=== PATIENT | female | born 1930 | race Caucasian/White ===

== ENCOUNTER 2018-09-10 12:14 | Inpatient (IN) | payer MEDICARE, OTHER ==
[~2018-09-10] VITALS: Ht 165.1 cm; Wt 63.6 kg
[2018-09-10] VITALS (9 sets, daily range): BP systolic 122–164; BP diastolic 48–82; PULSE 67–84; RESP 13–19; Ht 165.1 cm; Wt 63.6 kg
--- NOTE | 2018-09-10 12:25 | ERD ---
ER Documentation Chief Complaint Chief Complaint "More altered than usual" HPI 87-year-old female history of hypertension, dementia, CKD, coronary artery disease, chronic diastolic heart failure, anemia, malignant neoplasm of left o vary, GERD and dysphasia, G-tube dependent presents to the ED via rescue ambulance from [facility] for evaluation of altered mental status. This morning at approximately 9 AM during rounds patient was found not responding as per her baseline. Patient usually is awake and answers to her name. Patient was last seen at her baseline yesterday evening at bedtime approximately 11 PM. As per SNF staff, over the last several days patient has had increasing agitation that did not respond to her usual Ativan and was started on BuSpar. History is extremely limited due to the patient's clinical condition and cognitive impairment and obtained entirely from review of intermediate facility records, EMS and subsequent conversation with staff at the intermediate facility. ROS Unobtainable except as per HPI due to the patient's clinical condition and c ognitive impairment. Medications Home Meds Reported Medications Polyethylene Glycol* (Polyethylene Glycol*) 17 Gm Powd.pack, 17 GM GTB BID, #60 PACKET MIX WITH 8oz OF WATER HOLD FOR LOOSE STOOL 09/10/18 Ferrous Sulfate (Ferrous Sulfate) 220 Mg/5 Ml Solution, 330 MG GTB BID 09/10/18 Losartan Potassium* (Losartan Potassium*) 50 Mg Tablet, 50 MG GTB DAILY, TAB HOLD IF SBP <110 09/10/18 Multivitamin* (Daily Value*) 1 Each Tablet, 1 TAB GTB DAILY, TAB 09/10/18 Clopidogrel Bisulfate (Clopidogrel) 75 Mg Tablet, 75 MG GTB DAILY, #30 TAB 09/10/18 Amino Acids/Protein Hydrolys (Pro-Stat Awc Liquid) 30 Ml Liquid, 30 ML GTB BID MIX WITH 30 MLS OF WATER 09/10/18 Aspirin (Low Dose Aspirin) 81 Mg Tablet.dr, 81 MG GTB DAILY, #30 TAB 09/10/18 Amlodipine Besylate* (Norvasc*) 5 Mg Tablet, 5 MG GTB DAILY, TAB HOLD FOR SBP <110 09/10/18 Allergies Allergies: Coded Allergies: No Known Allergy (Unverified , 09/10/18) PMhx/Soc Reviewed in chart. As per HPI. SNF resident. POLST-full code. History of Surgery: Yes (Port-A-Cath, G-tube) Hx Neurological Disorder: Yes (Dementia) Hx Respiratory Disorders: No Hx Cardiac Disorders: Yes (Coronary artery disease, hypertension, CHF) Hx Miscellaneous Medical Probl: Yes (Diabetes, hyperlipidemia, malignant neoplasm of left ovary) Hx Alcohol Use: No (No history of alcohol use documented) Hx Substance Use: No (No history of substance abuse documented) Smoking Status: Unknown if ever smoked FmHx Unknown. Unobtainable due to the patient's clinical condition and cognitive impairment Physical Exam Vitals Vital Signs Date Temp Pulse Resp B/P (MAP) Pulse Ox O2 O2 Flow FiO2 Time Delivery Rate 09/10/18 99.4 65 18 140/61 100 Nasal 13:00 (87) Cannula 09/10/18 99.4 12:53 09/10/18 98.8 89 18 137/59 99 12:21 (85) Physical Exam Const: Severe distress, uncooperative Head: Atraumatic Eyes: Pupils equal reactive to light. No gaze preference. Normal Conjunc tiva ENT: Normal External Ears, Nose and Mouth. Ecchymosis and swelling left mandible. No deformity. Positive gag reflex Neck: Supple. Carotids 2+ bilaterally without bruits. No me ningismus. No JVD. Resp: Breath sounds equal and clear to auscultation bilaterally. No rales rhonchi or wheezes. Cardio: Regular rate and rhythm, no murmurs Abd: Soft, non tender, non distended. No rebound or guarding. Normal bowel sounds. G-tube site without erythema, induration or drainage. Skin: No petechiae or rashes. Ecchymosis and bruising to the lower extremities. Back: No midline or flank tenderness Ext: No cyanosis, or edema Neur: Localizes pain. Uncooperative. No facial droop. DTRs symmetrical. Moves all extremities spontaneously. Physical examination is truncated due to the constraints imposed by the patient's clinical condition Result Diagram: 09/11/1844909/11/18449 Results 24 hrs Laboratory Tests Test 09/10/18 12:37 09/10/18 13:37 White Blood Count 16.6 10^3/ul Red Blood Count 2.57 10^6/ul Hemoglobin 7.6 g/dl Hematocrit 23.8 % Mean Corpuscular Volume 92.6 fl Mean Corpuscular Hemoglobin 29.6 pg Mean Corpuscular Hemoglobin Concent 31.9 g/dl Red Cell Distribution Width 18.0 % Platelet Count 255 10^3/UL Mean Platelet Volume 10.4 fl Immature Granulocytes % 0.700 % Neutrophils % 80.2 % Lymphocytes % 11.3 % Monocytes % 7.2 % Eosinophils % 0.4 % Basophils % 0.2 % Nucleated Red Blood Cells % 0.0 /100WBC Immature Granulocytes # 0.110 10^3/ul Neutrophils # 13.3 10^3/ul Lymphocytes # 1.9 10^3/ul Monocytes # 1.2 10^3/ul Eosinophils # 0.1 10^3/ul Basophils # 0.0 10^3/ul Nucleated Red Blood Cells # 0.0 10^3/ul Urine Color YELLOW Urine Clarity CLOUDY Urine pH 8.0 Urine Specific [place] 1.015 Urine Ketones NEGATIVE mg/dL Urine Nitrite NEGATIVE mg/dL Urine Bilirubin NEGATIVE mg/dL Urine Urobilinogen NEGATIVE mg/dL Urine Leukocyte Esterase 3+ Darius/ul Urine Microscopic RBC 41 /HPF Urine Microscopic WBC 148 /HPF Urine Squamous Epithelial Cells FEW /HPF Urine Bacteria FEW /HPF Urine Mucus FEW /HPF Urine Yeast (Budding) MANY /HPF Urine Hemoglobin NEGATIVE mg/dL Urine Glucose NEGATIVE mg/dL Urine Total Protein 2+ mg/dl Sodium Level 136 mmol/L Potassium Level 6.6 mmol/L Chloride Level 102 mmol/L Carbon Dioxide Level 23 mmol/L Anion Gap 11 Blood Urea Nitrogen 91 mg/dl Creatinine 4.03 mg/dl Est Glomerular Filtrat Rate mL/min mL/min Glucose Level 114 mg/dl Calcium Level 8.6 mg/dl Total Bilirubin 0.3 mg/dl Direct Bilirubin 0.00 mg/dl Indirect Bilirubin 0.3 mg/dl Aspartate Amino Transf (AST/SGOT) 35 IU/L Alanine Aminotransferase (ALT/SGPT) 17 IU/L Alkaline Phosphatase 63 IU/L Troponin I 0.101 ng/ml Total Protein 7.3 g/dl Albumin 3.3 g/dl Globulin 4.00 g/dl Albumin/Globulin Ratio 0.82 Bedside Glucose 124 mg/dL Current Medications Medications Dose Sig/Toney Start Time Status Last (Trade) Ordered Route PRN Stop Time Admin Dose Reason Admin Ceftriaxone 50 ml @ ONCE STAT 09/10/18 DC 09/10/18 Sodium 100 mls/hr IVPB 13:19 09/10/18 13:38 13:48 Albuterol 15 mg ONCE STAT 09/10/18 DC 09/10/18 (Proventil INH 13:23 09/10/18 13:57 0.5% (Neb)) 13:25 Sodium 50 ml ONCE STAT 09/10/18 DC 09/10/18 Bicarbonate IV 13:09/10/18 13:40 (Na Bicarb 13:25 8.4% Syg) Calcium 1,000 mg ONCE STAT 09/10/18 DC 09/10/18 Chloride IV 13:23 09/10/18 13:40 (Ca Chloride 13:25 10% Syg) Insulin 10 unit ONCE STAT 09/10/18 DC 09/10/18 Human IVP 13:23 09/10/18 13:41 Regular 13:25 (Humulin R) Dextrose ONCE PRN 09/10/18 09/10/18 (D50w IV DECREASED 13:30 13:42 Syringe) GLUCOSE Procedures/MDM DOCUMENTS REVIEWED: ED nurse, intermediate facility records. EKG: Time: :19. Sinus rhythm. Ventricular rate 70. Normal MI interval. QRS duration 118 ms. Incomplete left bundle branch block. Nonspecific ST-T wave changes. No ectopy. My Interpretation IMAGING: Chest AP portable: Cardiac silhouette is normal. The costophrenic angles are clear. No effusions or infiltrates. Port-A-Cath with tip in the superior vena cava. My interpretation PROCEDURE: Noncontrast CT Head. CLINICAL INDICATION: Trauma. TECHNIQUE: Noncontrast CT of the head was obtained. The administered radiation dose was CTDI vol = 38.01 mGy, DLP = 634.23 mGy-cm. One or more of the following dose reduction techniques were used: Automated exposure control, Adjustment of the mA and/or kV according to patient size, or Use of iterative reconstruction technique. DICOM images are available. COMPARISON: There are no similar studies submitted for comparison. FINDINGS: There is mild to moderate generalized cerebral volume loss. There is extensive periventricular hypoattenuation suggesting chronic microvascular ischemic changes. There are moderate to extensive vascular calcifications within the intracranial carotid arteries. There is an acute / recent left temporal parietal occipital infarction. There are also acute / recent right parietal occipital infarction. No midline shift is identified. The orbits are within normal limits. There is minimal bilateral ethmoid sinus mucosal thickening. No destructive osseous lesion is identified. IMPRESSION: 1. Acute / recent left temporal occipital and right parietal occipital infarctions. Consider CTA of the head/neck or noncontrast MRI of the brain as clinically warranted. 2. No acute intracranial hemorrhage or extra-axial fluid collection. 3. Mild to moderate generalized cerebral volume loss. 4. Advanced chronic microvascular ischemic changes. Further findings as detailed above. Critical findings were discussed with Gin Daily on 09/10/2018 at 1:20 PM. RPTAT: HVF .Dionicio Farrell MD, MD Date Time Electronically viewed and signed by .Dionicio Farrell MD, MD on 09/10/2018 13:22 .F/ CRITICAL CARE TIME: Due to the high probability of sudden clinically significant hemodynamic, cardiovascular and neurologic deterioration, this patient presenting with acute CVA, acute renal failure and hyperkalemia required multiple, frequent reevaluations of vital signs and response to therapy. Additional critical care time was spent in obtaining supplemental history from EMS, review of intermediate facility records, interpretation of relevant clinical data including labs and imaging studies as well as arranging for admission and ongoing care to the intensive care unit with Dr. Montesinos. TOTAL CRITICAL CARE TIME: 40 minutes not including other separately reportable procedures. MEDICAL DECISION MAKIN-year-old female history of hypertension, dementia, CKD, coronary artery disease, chronic diastolic heart failure, anemia, malignant neoplasm of left ovary, GERD and dysphasia, G-tube dependent presents to the ED via rescue ambulance from [facility] for evaluation of altered mental status. CBC reveals leukocytosis and anemia but no thrombocytopenia. Chemistry remarkable for markedly elevated BUN/creatinine consistent with acute renal failure and critical hyperkalemia but no acidosis or hypo/hyperglycemia. Chest x-ray unremarkable for pneumonia, CHF or volume overload. Urinalysis reveals pyuria consistent with urinary tract infection and antibiotics initiated after cultures. EKG negative for acute ischemic changes or dysrhythmia. Troponin is not elevated above the reference range. CT of the brain significant for acute/subacute left temporal occipital and parieto- occipital infarcts but no hemorrhage, mass, hydrocephalus or shift. Hyperkalemia treated aggressively with D50/insulin, nebulized beta agonist, calcium and bicarb. Patient presents with acute encephalopathy and CT findings of CVA which are acute but greater than 24 hours. Patient not a candidate for thrombolytics or endovascular therapy. Aspirin suppository administered. Urinary tract infection but no criteria for systemic inflammatory response syndrome. Admit to ICU for further evaluation and management. PATIENT CARE TRANSITIONED: Time: 13:41, Dr. Montesinos. Counseled [patient and family] regarding diagnosis, diagnostic results and plan for admission. Departure Diagnosis: Primary Impression: CVA (cerebral vascular accident) CVA mechanism: unspecified Qualified Codes: I63.9 - Cerebral infarction, unspecified Additional Impressions: Acute encephalopathy Acute renal failure Acute renal failure type: unspecified Qualified Codes: N17.9 - Acute kidney failure, unspecified Acute hyperkalemia UTI (urinary tract infection) Urinary tract infection type: site unspecified Hematuria presence: without hematuria Qualified Codes: N39.0 - Urinary tract infection, site not specif ied History of ovarian cancer Condition: Critical GIN RODRIGUEZ MD Sep 10, 2018 12:25
[2018-09-10] MEDS ORDERED: AMLO5TAB4 GTB (12:49)
[2018-09-10] MEDS ORDERED: ASPI81TA52 GTB (12:49)
[2018-09-10] MEDS ORDERED: AMIN30LI5 GTB (12:51)
[2018-09-10] MEDS ORDERED: MULT-542 GTB (12:52)
[2018-09-10] MEDS ORDERED: CLOP75TA27 GTB (12:52)
[2018-09-10] MEDS ORDERED: LOSA50TA14 GTB (12:53)
[2018-09-10] MEDS ORDERED: FERR220S19 GTB (12:54)
[2018-09-10] MEDS ORDERED: POLY17PO28 GTB (12:56)
[2018-09-10] MEDS ORDERED: CEFTRIAXONE 1 GM/50 ML (PMX) 50 ML IVPB STA (13:19)
[2018-09-10] MEDS ORDERED: INSULIN REGULAR, HUMAN 100 UNIT/1 ML 3ML VIAL IVP STA (13:23)
[2018-09-10] MEDS ORDERED: ALBUTEROL 0.5% (NEB) 2.5 MG/0.5 ML AMP INH STA (13:23)
[2018-09-10] MEDS ORDERED: CA CHLORIDE 10% 10 ML SYRINGE IV STA (13:23)
[2018-09-10] MEDS ORDERED: NA BICARBONATE 8.4% 50 ML SYG IV STA (13:23)
[2018-09-10] MEDS ORDERED: DEXTROSE 50% 50 ML SYRINGE IV PRN (13:30)
[2018-09-10] MEDS ORDERED: ASPIRIN 300 MG SUPP PR ONE (14:00)
--- NOTE | 2018-09-10 14:31 | HP ---
Date/Time of Note Date/Time of Note DATE: 09/10/18 TIME: 14:25 Assessment/Plan VTE Prophylaxis SCD applied (from Nsg): Yes Pharmacological prophylaxis: NA/contraindicated Pharm contraindication: renal impairment Lines/Catheters IV Catheter Type (from Nrsg): portacath Assessment/Plan Hospital Course 1. Acute on chronic encephalopathy secondary to acute CVA CT head once again shows acute/recent left temporal occipital and right parietal occipital infarctions Patient is outside the window for TPA Neurology consultation Stroke protocol with neurochecks Aspirin per rectum 2. Sepsis secondary to UTI Rocephin empirically Follow-up on cultures 3. Acute kidney injury on CKD likely secondary to sepsis hemodynamics Baseline creatinine unknown IV fluids Antibiotics Nephrology consultation Renal ultrasound 4. History of ovarian cancer Unclear if patient is receiving chemotherapy 5. Dementia Patient resides in a fci and receives G-tube feeds 6. Hyperkalemia secondary to renal failure Treated in ER 7. Normocytic anemia likely secondary to chronic disease and renal failure Monitor Prophylaxis: SCDs Result Diagram: 09/10/18 1237 09/10/18 1237 Results 24hrs Laboratory Tests Test 09/10/18 12:37 09/10/18 13:37 White Blood Count 16.6 H Red Blood Count 2.57 L Hemoglobin 7.6 L Hematocrit 23.8 L Mean Corpuscular Volume 92.6 Mean Corpuscular Hemoglobin 29.6 Mean Corpuscular Hemoglobin Concent 31.9 L Red Cell Distribution Width 18.0 H Platelet Count 255 Mean Platelet Volume 10.4 Immature Granulocytes % 0.700 H Neutrophils % 80.2 H Lymphocytes % 11.3 L Monocytes % 7.2 Eosinophils % 0.4 Basophils % 0.2 Nucleated Red Blood Cells % 0.0 Immature Granulocytes # 0.110 H Neutrophils # 13.3 H Lymphocytes # 1.9 Monocytes # 1.2 H Eosinophils # 0.1 Basophils # 0.0 Nucleated Red Blood Cells # 0.0 Urine Color YELLOW Urine Clarity CLOUDY A Urine pH 8.0 Urine Specific [place] 1.015 Urine Ketones NEGATIVE Urine Nitrite NEGATIVE Urine Bilirubin NEGATIVE Urine Urobilinogen NEGATIVE Urine Leukocyte Esterase 3+ H Urine Microscopic RBC 41 H Urine Microscopic WBC 148 H Urine Squamous Epithelial Cells FEW Urine Bacteria FEW A Urine Mucus FEW A Urine Yeast (Budding) MANY A Urine Hemoglobin NEGATIVE Urine Glucose NEGATIVE Urine Total Protein 2+ H Sodium Level 136 Potassium Level 6.6 *H Chloride Level 102 Carbon Dioxide Level 23 Anion Gap 11 Blood Urea Nitrogen 91 H Creatinine 4.03 H Est Glomerular Filtrat Rate mL/min Glucose Level 114 Calcium Level 8.6 Total Bilirubin 0.3 Direct Bilirubin 0.00 Indirect Bilirubin 0.3 Aspartate Amino Transf (AST/SGOT) 35 Alanine Aminotransferase (ALT/SGPT) 17 Alkaline Phosphatase 63 Troponin I 0.101 Total Protein 7.3 Albumin 3.3 Globulin 4.00 H Albumin/Globulin Ratio 0.82 Bedside Glucose 124 HPI/ROS Admit Date/Time Admit Date/Time September 10, 2018 Hx of Present Illness Patient is an 87-year-old female with history of hypertension, dementia, CKD, coronary disease, diastolic heart failure, anemia, malignant neoplasm of left ovary, GERD and dysphasia with G-tube. Patient resides at [facility], patient presents with acute on chronic encephalopathy. Patient was brought in by paramedics after being noted to be altered this morning and was not responding as per her baseline. Patient is usually awake and answers to her name but over the last several days patient has had increasing agitation and was started on BuSpar. Patient was last seen in her baseline before 11 PM last night. History is obtained from ER physician and paramedics as patient is nonverbal at this time. 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 UA was also consistent with UTI. ROS Subjective hx not possible: pt non-verbal PMH/Family/Social Past Medical History As per HPI Medications Current Medications Dextrose (D50w Syringe) ONCE PRN IV DECREASED GLUCOSE Last administered on 09/10/18at 13:42; Admin Dose 25 ML; Start 09/10/18 at 13:30 Coded Allergies: No Known Allergy (Unverified , 09/10/18) Family History Significant Family History: no pertinent family hx Social History Alcohol Use: none Smoking Status: Unknown if ever smoked Drug Use: none Exam/Review of Systems Vital Signs Vitals Vital Signs Date Temp Pulse Resp B/P (MAP) Pulse Ox O2 O2 Flow FiO2 Time Delivery Rate 09/10/18 66 22 99 21 14:00 09/10/18 99.4 140/61 Nasal 13:00 (87) Cannula Exam Constitutional: non-verbal Respiratory: clear to auscultation Cardiovascular: regular rate and rhythm Gastrointestinal: soft; No distended Musculoskeletal: nl extremities to inspection REGAN SANCHEZ Sep 10, 2018 14:31
[2018-09-10] MEDS ORDERED: ONDANSETRON 4 MG INJ IV PRN (15:00)
[2018-09-10] MEDS ORDERED: morphine 2 MG INJ IV PRN (15:00)
[2018-09-10] MEDS ORDERED: NACL 0.9% 3 ML SYG IV SCH (15:00)
[2018-09-10] MEDS: SOD CHLORIDE 0.9% 1,000 ML IV SCH (15:03)
[2018-09-11] VITALS (34 sets, daily range): BP systolic 103–175; BP diastolic 40–80; PULSE 67–84; RESP 11–27
[2018-09-11] MEDS: SOD CHLORIDE 0.9% 1,000 ML IV SCH ×3 (03:21→22:38)
[2018-09-11] MEDS ORDERED: NA POLYST SULFON 15 GM/60 ML BTL GTB ONE (07:30)
[2018-09-11] MEDS: MULTIVITAMINS THERAPEUTIC TAB GTB SCH (08:07)
[2018-09-11] MEDS: AMLODIPINE 5 MG TAB GTB SCH (08:07)
[2018-09-11] MEDS: LOSARTAN 50 MG TAB GTB SCH (08:07)
[2018-09-11] MEDS: CLOPIDOGREL 75 MG TAB GTB SCH (08:07)
[2018-09-11] MEDS: ASPIRIN 81 MG TAB GTB SCH (08:08)
--- NOTE | 2018-09-11 11:19 | RADRPT ---
Echocardiogram Report Patient Name: Mike MOORE ID: [id number] : 1930 ([id number] )Study Date: 09/11/2018 8:14:32 AM Gender: FAccession #: [id number] Tech: Juju Montaño RDCS Location: 107 Ref.Physician: REGAN SANCHEZ Height(Cm): BSA: Weight(Kg): Quality: AdequateOrder Physician: REGAN SANCHEZ Account #: Procedures: Echocardiographic Report: Transthoracic echocardiogram with complete 2D, M-Mode, and doppler examination. Indications: Cerebrovascular Accident. Measurements: 2D/M Mode Doppler Measurement Value Normal Range Measurement Value Normal Range LVIDd 2D 3.4 [ 3.8 - 5.2 ] cm ARTIE Vmax 1.7 [ 2.0 - 4.0 ] cm2 LVIDs 2D 3.1 [ 2.2 - 3.5 ] cm ARTIE VTI 1.7 [ 2.0 - 4.0 ] cm2 LVPWd 2D 0.8 [ 0.6 - 0.9 ] cm AV Mean Andrew 1.2 [ 70.0 - 90.0 ] cm/sec IVSd 2D 0.9 [ 0.6 - 0.9 ] cm AV Mean PG 7.0 [ 2.0 - 4.0 ] mmHg IVS/LVPW 2D 1.1 ratio AV Peak Andrew 2.0 [ 100.0 - 170.0 ] cm/sec AoR Diam 2D 3.0 [ 2.3 - 3.1 ] cm AV Peak PG 16.0 [ 2.0 - 9.0 ] mmHg LA/Ao 2D 1 ratio AV VTI 39.7 cm LA Dimen 2D 3.4 [ 2.7 - 3.8 ] cm LVOT Mean Andrew 0.7 [ 60.0 - 80.0 ] cm/sec LVOT Area 2.8 cm2 LVOT Mean PG 2.0 [ 1.0 - 3.0 ] mmHg LVOT Peak Andrew 1.2 [ 70.0 - 110.0 ] cm/sec LVOT Peak PG 6.0 [ 2.0 - 6.0 ] mmHg LVOT VTI 23.9 [ 20.0 - 30.0 ] cm MV E Peak Andrew 0.6 [ 60.0 - 130.0 ] cm/sec MV A Peak Andrew 1.1 [ 100.0 - 120.0 ] cm/sec MV E/A 0.5 [ 0.8 - 1.5 ] ratio MV Decel Time 229 [ 104 - 258 ] msec Lat E` Andrew 0.1 [ 10.0 - 15.0 ] cm/sec MV E/A 0.5 [ 0.8 - 1.5 ] ratio TR Peak Andrew 2.8 [ 100.0 - 280.0 ] cm/sec TR Peak PG 31.0 mmHg RVSP 34.0 [ 10.0 - 36.0 ] mmHg RA Pressure 3.0 mmHg Findings: Left Ventricle: Normal left ventricular systolic function. Normal left ventricular cavity size. Normal left ventricular wall thickness. Mild global left ventricular systolic dysfunction. Ejection fraction is visually estimated at 40 %. Tissue Doppler/Mitral Doppler indices are consistent with impaired relaxation (Stage I diastolic dysfunction). These segments of the LV are hypokinetic apex and apical septum. Right Ventricle: Normal right ventricular size. Normal right ventricular systolic function. Left Atrium: The left atrium is normal in size. Right Atrium: The right atrium is normal in size. Mitral Valve: Mitral valve leaflets appear mildly thickened. Moderate mitral annular calcification. Mild to moderate mitral valve regurgitation. Aortic Valve: Aortic valve Max velocity 1.99 m/sec. Max PG 16.00 mmHg. Mean PG 7.00 mmHg. Aortic sclerosis without significant stenosis. Tricuspid Valve: Normal appearance of the tricuspid valve. The estimated Peak RVSP is 34 mmHg. There is trace tricuspid regurgitation. Pulmonic Valve: Pulmonic valve not well visualized. Pericardium: Normal pericardium with no significant pericardial effusion. Aorta: Normal aortic root. IVC: Normal size and normal respiratory collapse consistent with normal right atrial pressure. Conclusions: Normal left ventricular systolic function. Normal left ventricular cavity size. Normal left ventricular wall thickness. Mild global left ventricular systolic dysfunction. Ejection fraction is visually estimated at 40 %. Tissue Doppler/Mitral Doppler indices are consistent with impaired relaxation (Stage I diastolic dysfunction). These segments of the LV are hypokinetic apex and apical septum. Mitral valve leaflets appear mildly thickened. Moderate mitral annular calcification. Mild to moderate mitral valve regurgitation. Normal appearance of the tricuspid valve. The estimated Peak RVSP is 34 mmHg. There is trace tricuspid regurgitation. Electronically Signed By: Jake Dutton 2018-09-11 11:18:43 PDT
[2018-09-11] MEDS ORDERED: VANCOMYCIN IV PER PHARMACY XX SCH (12:00)
[2018-09-11] MEDS ORDERED: VANCOMYCIN HCL 1.25 GM in SOD CHLORIDE 0.9% 250 ML IVPB ONE (12:00)
--- NOTE | 2018-09-11 13:14 | PN ---
Date/Time of Note Date/Time of Note DATE: 09/11/18 TIME: 13:09 Assessment/Plan VTE Prophylaxis Risk score (from Ns)>0 risk: 12 SCD applied (from Ns): Yes Pharmacological prophylaxis: heparin Lines/Catheters IV Catheter Type (from [facility]): Portacath Assessment/Plan Hospital Course 1. 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 Sepsis with bacteremia likely secondary to UTI Blood cultures are positive for gram-positive cocci in pairs and clusters Empiric vancomycin and Rocephin Follow-up on cultures 3. Acute kidney injury on CKD likely secondary to sepsis and hemodynamics- improving Baseline creatinine unknown IV fluids Antibiotics Renal ultrasound with no evidence of hydronephrosis 4. History of ovarian cancer Unclear if patient is receiving chemotherapy 5. Dementia Patient resides in a halfway and receives G-tube feeds 6. Hyperkalemia secondary to renal failure Treated in ER 7. Normocytic anemia likely secondary to chronic disease and renal failure Monitor 8. History of hypertension Hold home meds today for permissive hypertension, resume tomorrow Prophylaxis: Heparin Result Diagram: 09/11/18 0450 09/11/18 0450 Results 24hrs Laboratory Tests Test 09/10/18 13:37 09/10/18 14:07 09/11/18 04:50 09/11/18 05:00 Bedside Glucose 124 179 White Blood Count 12.8 #H Red Blood Count 2.36 L Hemoglobin 6.9 *L Hematocrit 21.6 L Mean Corpuscular 91.5 Volume Mean Corpuscular 29.2 Hemoglobin Mean Corpuscular 31.9 L Hemoglobin Concent Red Cell 17.9 H Distribution Width Platelet Count 253 Mean Platelet 10.7 H Volume Immature 0.500 H Granulocytes % Neutrophils % 80.2 H Segmented 79 H Neutrophils % (Manual) Band Neutrophils % 5 H (Manual) Lymphocytes % 11.8 L Lymphocytes % 10 L (Manual) Monocytes % 7.2 Monocytes % 5 (Manual) Eosinophils % 0.1 Basophils % 0.2 Promyelocytes % 1 H (Manual) Nucleated Red 0.0 Blood Cells % Immature 0.060 H Granulocytes # Neutrophils # 10.3 H Neutrophils # 10.2 H (Manual) Band Neutrophils # 0.6 Lymphocytes 1.2 (Manual) Lymphocytes # 1.5 Monocytes # 0.9 Monocytes # 0.6 (Manual) Eosinophils # 0.0 Basophils # 0.0 Promyelocytes # 0.1 H Nucleated Red 0.0 Blood Cells # Platelet Estimate NORMAL Giant Platelets 2 H Anisocytosis 1+ Sodium Level 140 Potassium Level 5.8 H Chloride Level 109 Carbon Dioxide 21 Level Anion Gap 10 Blood Urea 81 H Nitrogen Creatinine 3.18 H Est Glomerular Filtrat Rate mL/min Glucose Level 102 Calcium Level 8.1 L Phosphorus Level 5.6 H Magnesium Level 2.4 Blood Gas Specimen Blood arterial Source Arterial Blood 09/11/2018 4:30:04 Date Drawn AM Arterial Blood pH 7.476 H (Temp corrected) Arterial Blood 30.5 L pCO2 (Temp correct) Arterial Blood pO2 82.8 (Temp corrected) Arterial Blood 22.0 HCO3 Arterial Blood -1.3 Base Excess Arterial Blood 96.6 Oxygen Saturation Raciel Test ACCEPTAB Arterial Blood Gas Right Radial Puncture Site Arterial 1.1 Blood Carboxyhemog lobin Arterial Blood 0.3 Methemoglobin Blood Gas A-a O2 30.4 H Differential Oxyhemoglobin 95.2 Percent Blood Gas 37.0 Temperature Blood Gas Modality ROOM AIR FiO2 21.0 Blood Gas Critical COH RN Value Read Back Blood Gas Notified MA Whom Blood Gas Notified 09/11/2018 4:57:37 Time AM Subjective 24 Hr Interval Summary Subjective hx not possible: pt non-verbal Exam/Review of Systems Exam Vitals Vital Signs Date Temp Pulse Resp B/P (MAP) Pulse Ox O2 O2 Flow FiO2 Time Delivery Rate 09/11/18 99.0 81 12 137/57 98 Room Air 12:00 (83) 09/10/18 21 14:00 Intake and Output 09/10/18 09/10/18 09/11/18 1515:00 23:00 07:00 IntakeIntake Total 560 ml 560 ml OutputOutput Total 44 ml 308 ml BalanceBalance 516 ml 252 ml Constitutional: non-verbal Respiratory: clear to auscultation Cardiovascular: regular rate and rhythm Gastrointestinal: soft; No distended Musculoskeletal: nl extremities to inspection Results Results 24hrs Laboratory Tests Test 09/10/18 13:37 09/10/18 14:07 09/11/18 04:50 09/11/18 05:00 Bedside Glucose 124 179 White Blood Count 12.8 #H Red Blood Count 2.36 L Hemoglobin 6.9 *L Hematocrit 21.6 L Mean Corpuscular 91.5 Volume Mean Corpuscular 29.2 Hemoglobin Mean Corpuscular 31.9 L Hemoglobin Concent Red Cell 17.9 H Distribution Width Platelet Count 253 Mean Platelet 10.7 H Volume Immature 0.500 H Granulocytes % Neutrophils % 80.2 H Segmented 79 H Neutrophils % (Manual) Band Neutrophils % 5 H (Manual) Lymphocytes % 11.8 L Lymphocytes % 10 L (Manual) Monocytes % 7.2 Monocytes % 5 (Manual) Eosinophils % 0.1 Basophils % 0.2 Promyelocytes % 1 H (Manual) Nucleated Red 0.0 Blood Cells % Immature 0.060 H Granulocytes # Neutrophils # 10.3 H Neutrophils # 10.2 H (Manual) Band Neutrophils # 0.6 Lymphocytes 1.2 (Manual) Lymphocytes # 1.5 Monocytes # 0.9 Monocytes # 0.6 (Manual) Eosinophils # 0.0 Basophils # 0.0 Promyelocytes # 0.1 H Nucleated Red 0.0 Blood Cells # Platelet Estimate NORMAL Giant Platelets 2 H Anisocytosis 1+ Sodium Level 140 Potassium Level 5.8 H Chloride Level 109 Carbon Dioxide 21 Level Anion Gap 10 Blood Urea 81 H Nitrogen Creatinine 3.18 H Est Glomerular Filtrat Rate mL/min Glucose Level 102 Calcium Level 8.1 L Phosphorus Level 5.6 H Magnesium Level 2.4 Blood Gas Specimen Blood arterial Source Arterial Blood 09/11/2018 4:30:04 Date Drawn AM Arterial Blood pH 7.476 H (Temp corrected) Arterial Blood 30.5 L pCO2 (Temp correct) Arterial Blood pO2 82.8 (Temp corrected) Arterial Blood 22.0 HCO3 Arterial Blood -1.3 Base Excess Arterial Blood 96.6 Oxygen Saturation Raciel Test ACCEPTAB Arterial Blood Gas Right Radial Puncture Site Arterial 1.1 Blood Carboxyhemog lobin Arterial Blood 0.3 Methemoglobin Blood Gas A-a O2 30.4 H Differential Oxyhemoglobin 95.2 Percent Blood Gas 37.0 Temperature Blood Gas Modality ROOM AIR FiO2 21.0 Blood Gas Critical COH RN Value Read Back Blood Gas Notified MA Whom Blood Gas Notified 09/11/2018 4:57:37 Time AM Medications Medication Current Medications Dextrose (D50w Syringe) ONCE PRN IV DECREASED GLUCOSE Last administered on 09/10/18at 13:42; Admin Dose 25 ML; Start 09/10/18 at 13:30 Sodium Chloride 1,000 ml @ 80 mls/hr [id number] IV Last administered on 09/11/18at 03:21; Admin Dose 80 MLS/HR; Start 09/10/18 at 14:32 IV Flush (NS 3 ml) 3 ml PER PROTOCOL IV ; Start 09/10/18 at 15:00 Ondansetron HCl (Zofran Inj) 4 mg Q6H PRN IV NAUSEA/VOMITING; Start 09/10/18 at 15:00 Morphine Sulfate (morphine) 2 mg Q4H PRN IV .SEVERE PAIN 7-10; Start 09/10/18 at 15:00 Ceftriaxone Sodium 50 ml @ 100 mls/hr Q24H IVPB ; Start 09/11/18 at 13:30 Amlodipine Besylate (Norvasc) 5 mg DAILY GTB ; Start 09/11/18 at 09:00 Clopidogrel Bisulfate (plaVIX) 75 mg DAILY GTB ; Start 09/11/18 at 09:00 Losartan Potassium (Cozaar) 50 mg DAILY GTB ; Start 09/11/18 at 09:00 Multivitamins Therapeutic (Theragran) 1 tab DAILY GTB ; Start 09/11/18 at 09:00 Aspirin (Aspirin) 81 mg DAILY GTB ; Start 09/11/18 at 09:00 Vancomycin HCl (Vanco Iv Per Pharmacy) VANCOMYCIN PER PHARMACY PER PROTOCOL XX ; Start 09/11/18 at 12:00 Vancomycin HCl 1.25 gm/Sodium Chloride 250 ml @ 83.333 mls/ hr ONCE ONCE IVPB Last administered on 09/11/18at 12:24; Admin Dose 83.333 MLS/HR; Start 09/11/18 at 12:00; Stop 09/11/18 at 14:59 REGAN SANCHEZ Sep 11, 2018 13:14
[2018-09-11] MEDS: CEFTRIAXONE 1 GM/50 ML (PMX) 50 ML IVPB SCH (14:56)
--- NOTE | 2018-09-11 17:50 | CONSI ---
Assessment/Plan Assessment/Plan Assessment/Plan (Recall) 87 F c/ reported ovarian Ca, dementia, and other comorbidities, who presents for evaluation of ams. Noted to have a UTI and SAVANNAH w/ bun >90...which are the likely cause of an acute toxic-metabolic (on chronic) encephalopathy.. A CT head showed a bilateral hypodensities suggestive of subacute infarctions, for which neurology is consulted... The appearance suggests underlying central thromboembolism TTE confirms apical hypokinesis, which likely predisposes to clot formation P: Goals of care conversation with medical decision makers Consider MRI brain for further characterization, pending the above.. Agree w/ plavix daily for secondary stroke prevention in the short-term, with plan for anticoagulation in the future.. PT/OT/ST when able Other management and supportive care per primary Will follow clinically Consultation Date/Type/Reason Admit Date/Time September 10, 2018 Type of Consult Neurology Reason for Consultation ams, stroke Requesting Provider: REGAN SANCHEZ Date/Time of Note DATE: 09/11/18 TIME: 17:37 Hx of Present Illness Patient is unable to contribute a Hx.. It is elsewhere noted: Patient is an 87-year-old female with history of hypertension, dementia, CKD, coronary disease, diastolic heart failure, anemia, malignant neoplasm of left ovary, GERD and dysphasia with G-tube. Patient resides at [facility], patient presents with acute on chronic encephalopathy. Patient was brought in by paramedics after being noted to be altered this morning and was not responding as per her baseline. Patient is usually awake and answers to her name but over the last several days patient has had increasing agitation and was started on BuSpar. Patient was last seen in her baseline before 11 PM last night. History is obtained from ER physician and paramedics as patient is nonverbal at this time. 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 UA was also consistent with UTI. Subjective hx not possible: pt non-verbal Objective Exam Vitals Vital Signs Date Temp Pulse Resp B/P (MAP) Pulse Ox O2 O2 Flow FiO2 Time Delivery Rate 09/11/18 99.0 68 27 173/72 98 Room Air 16:00 (105) 09/10/18 21 14:00 Intake and Output 09/10/18 09/10/18 09/11/18 1515:00 23:00 07:00 IntakeIntake Total 560 ml 560 ml OutputOutput Total 44 ml 358 ml BalanceBalance 516 ml 202 ml Exam PE: Gen Appearance: No Apparent Distress HEENT: Normocephalic Cardiovascular: Regular rate Abdomen: Soft Extremities: Dry NE: The patient was obtunded and nonverbal. Cranial nerve examination was limited by mental status. Pupils were equal and reactive to light. There was no afferent pupillary defect. Funduscopic examination was limited. Face was grossly symmetric, w/ present corneal reflexes. Tone was normal. Muscle bulk was normal. I did not see fasciculations. The patient withdrew to noxious stimulation x 4, more briskly on the right.. Coordination and gait testing was limited by mental status. Arm and leg reflexes were symmetric. Pedroza's sign was absent. Plantar responses were difficult to assess. Results Result Diagram: 09/11/18 0450 09/11/18 0450 Results 24hrs Laboratory Tests Test 09/11/18 04:50 09/11/18 05:00 White Blood Count 12.8 #H Red Blood Count 2.36 L Hemoglobin 6.9 *L Hematocrit 21.6 L Mean Corpuscular Volume 91.5 Mean Corpuscular Hemoglobin 29.2 Mean Corpuscular Hemoglobin Concent 31.9 L Red Cell Distribution Width 17.9 H Platelet Count 253 Mean Platelet Volume 10.7 H Immature Granulocytes % 0.500 H Neutrophils % 80.2 H Segmented Neutrophils % (Manual) 79 H Band Neutrophils % (Manual) 5 H Lymphocytes % 11.8 L Lymphocytes % (Manual) 10 L Monocytes % 7.2 Monocytes % (Manual) 5 Eosinophils % 0.1 Basophils % 0.2 Promyelocytes % (Manual) 1 H Nucleated Red Blood Cells % 0.0 Immature Granulocytes # 0.060 H Neutrophils # 10.3 H Neutrophils # (Manual) 10.2 H Band Neutrophils # 0.6 Lymphocytes (Manual) 1.2 Lymphocytes # 1.5 Monocytes # 0.9 Monocytes # (Manual) 0.6 Eosinophils # 0.0 Basophils # 0.0 Promyelocytes # 0.1 H Nucleated Red Blood Cells # 0.0 Platelet Estimate NORMAL Giant Platelets 2 H Anisocytosis 1+ Sodium Level 140 Potassium Level 5.8 H Chloride Level 109 Carbon Dioxide Level 21 Anion Gap 10 Blood Urea Nitrogen 81 H Creatinine 3.18 H Est Glomerular Filtrat Rate mL/min Glucose Level 102 Calcium Level 8.1 L Phosphorus Level 5.6 H Magnesium Level 2.4 Blood Gas Specimen Source Blood arterial Arterial Blood Date Drawn 09/11/2018 4:30:04 AM Arterial Blood pH (Temp corrected) 7.476 H Arterial Blood pCO2 (Temp correct) 30.5 L Arterial Blood pO2 (Temp corrected) 82.8 Arterial Blood HCO3 22.0 Arterial Blood Base Excess -1.3 Arterial Blood Oxygen Saturation 96.6 Raciel Test ACCEPTAB Arterial Blood Gas Puncture Site Right Radial Arterial Blood Carboxyhemoglobin 1.1 Arterial Blood Methemoglobin 0.3 Blood Gas A-a O2 Differential 30.4 H Oxyhemoglobin Percent 95.2 Blood Gas Temperature 37.0 Blood Gas Modality ROOM AIR FiO2 21.0 Blood Gas Critical Value Read Back COH RN Blood Gas Notified Whom MA Blood Gas Notified Time 09/11/2018 4:57:37 AM Past Medical History reviewed Home Meds Reported Medications Polyethylene Glycol* (Polyethylene Glycol*) 17 Gm Powd.pack, 17 GM GTB BID, #60 PACKET MIX WITH 8oz OF WATER HOLD FOR LOOSE STOOL 09/10/18 Ferrous Sulfate (Ferrous Sulfate) 220 Mg/5 Ml Solution, 330 MG GTB BID 09/10/18 Losartan Potassium* (Losartan Potassium*) 50 Mg Tablet, 50 MG GTB DAILY, TAB HOLD IF SBP <110 09/10/18 Multivitamin* (Daily Value*) 1 Each Tablet, 1 TAB GTB DAILY, TAB 09/10/18 Clopidogrel Bisulfate (Clopidogrel) 75 Mg Tablet, 75 MG GTB DAILY, #30 TAB 09/10/18 Amino Acids/Protein Hydrolys (Pro-Stat Awc Liquid) 30 Ml Liquid, 30 ML GTB BID MIX WITH 30 MLS OF WATER 09/10/18 Aspirin (Low Dose Aspirin) 81 Mg Tablet.dr, 81 MG GTB DAILY, #30 TAB 09/10/18 Amlodipine Besylate* (Norvasc*) 5 Mg Tablet, 5 MG GTB DAILY, TAB HOLD FOR SBP <110 09/10/18 Medications Current Medications Dextrose (D50w Syringe) ONCE PRN IV DECREASED GLUCOSE Last administered on 09/10/18at 13:42; Admin Dose 25 ML; Start 09/10/18 at 13:30 Sodium Chloride 1,000 ml @ 80 mls/hr [id number] IV Last administered on 09/11/18at 03:21; Admin Dose 80 MLS/HR; Start 09/10/18 at 14:32 IV Flush (NS 3 ml) 3 ml PER PROTOCOL IV ; Start 09/10/18 at 15:00 Ondansetron HCl (Zofran Inj) 4 mg Q6H PRN IV NAUSEA/VOMITING; Start 09/10/18 at 15:00 Morphine Sulfate (morphine) 2 mg Q4H PRN IV .SEVERE PAIN 7-10; Start 09/10/18 at 15:00 Ceftriaxone Sodium 50 ml @ 100 mls/hr Q24H IVPB Last administered on 09/11/18at 14:56; Admin Dose 100 MLS/HR; Start 09/11/18 at 13:30 Amlodipine Besylate (Norvasc) 5 mg DAILY GTB ; Start 09/11/18 at 09:00 Clopidogrel Bisulfate (plaVIX) 75 mg DAILY GTB ; Start 09/11/18 at 09:00 Losartan Potassium (Cozaar) 50 mg DAILY GTB ; Start 09/11/18 at 09:00 Multivitamins Therapeutic (Theragran) 1 tab DAILY GTB ; Start 09/11/18 at 09:00 Aspirin (Aspirin) 81 mg DAILY GTB ; Start 09/11/18 at 09:00 Vancomycin HCl (Vanco Iv Per Pharmacy) VANCOMYCIN PER PHARMACY PER PROTOCOL XX ; Start 09/11/18 at 12:00 Heparin Sodium (Porcine) (Heparin (5000 Units/1ml)) 5,000 unit BID SC ; Start 09/11/18 at 21:00 Allergies: Coded Allergies: No Known Allergy (Unverified , 09/10/18) Social History Alcohol Use: none Smoking Status: Unknown if ever smoked Drug Use: none MATEO VILCHIS Sep 11, 2018 17:48
[2018-09-11] MEDS: HEPARIN 5,000 UNIT/1 ML VIAL SC SCH (20:44)
[2018-09-12] VITALS (24 sets, daily range): BP systolic 99–165; BP diastolic 40–76; PULSE 57–130; RESP 11–25
[2018-09-12] MEDS: LOSARTAN 50 MG TAB GTB SCH (08:19)
[2018-09-12] MEDS: AMLODIPINE 5 MG TAB GTB SCH (08:19)
[2018-09-12] MEDS: MULTIVITAMINS THERAPEUTIC TAB GTB SCH (08:19)
[2018-09-12] MEDS: CLOPIDOGREL 75 MG TAB GTB SCH (08:19)
[2018-09-12] MEDS: ASPIRIN 81 MG TAB GTB SCH (08:19)
[2018-09-12] MEDS: HEPARIN 5,000 UNIT/1 ML VIAL SC SCH ×2 (08:27→20:56)
[2018-09-12] MEDS: SOD CHLORIDE 0.9% 1,000 ML IV SCH (11:04)
[2018-09-12] MEDS: CEFTRIAXONE 1 GM/50 ML (PMX) 50 ML IVPB SCH (13:00)
[2018-09-12] MEDS: BACITRACIN 0.9 GM OINT TOP SCH ×2 (13:05→20:51)
[2018-09-12] MEDS: VANCOMYCIN HCL 250 MG/5ML POSYG GTB SCH ×2 (13:54→17:38)
--- NOTE | 2018-09-12 18:36 | PN ---
Date/Time of Note Date/Time of Note DATE: 09/12/18 TIME: 18:32 Assessment/Plan VTE Prophylaxis Risk score (from Nsg)>0 risk: 4 Pharmacological prophylaxis: heparin Lines/Catheters IV Catheter Type (from Nrs): PORTH A CATH Assessment/Plan Hospital Course 1. 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 Sepsis with bacteremia Blood cultures are positive for staph species Patient is C. difficile positive Nares are MRSA positive Continue vancomycin IV and Rocephin IV Started vancomycin p.o. Bactroban for the nares ID consultation obtained Follow-up on cultures 3. Acute kidney injury on CKD likely secondary to sepsis and hemodynamics- improving Baseline creatinine unknown IV fluids Antibiotics Renal ultrasound with no evidence of hydronephrosis 4. History of ovarian cancer Unclear if patient is receiving chemotherapy 5. Dementia [facility] and receives G-tube feeds 6. Hyperkalemia secondary to renal failure Treated in ER 7. Normocytic anemia likely secondary to chronic disease and renal failure Monitor 8. Hypertension Continue home meds Prophylaxis: Heparin Result Diagram: 09/12/18 0421 09/12/18 0421 Results 24hrs Laboratory Tests Test 09/11/18 19:03 09/12/18 04:21 09/12/18 04:59 Hemoglobin 10.9 #L 9.4 L White Blood Count 10.3 Red Blood Count 3.35 #L Hematocrit 28.9 #L Mean Corpuscular Volume 86.3 Mean Corpuscular Hemoglobin 28.1 L Mean Corpuscular 32.5 Hemoglobin Concent Red Cell Distribution Width 19.2 H Platelet Count 230 Mean Platelet Volume 10.4 Immature Granulocytes % 0.500 H Neutrophils % 74.4 Lymphocytes % 14.2 L Monocytes % 9.8 Eosinophils % 0.8 Basophils % 0.3 Nucleated Red Blood Cells % 0.0 Immature Granulocytes # 0.050 H Neutrophils # 7.7 H Lymphocytes # 1.5 Monocytes # 1.0 H Eosinophils # 0.1 Basophils # 0.0 Nucleated Red Blood Cells # 0.0 Sodium Level 145 H Potassium Level 3.5 # Chloride Level 114 H Carbon Dioxide Level 24 Anion Gap 7 Blood Urea Nitrogen 74 H Creatinine 2.64 H Est Glomerular Filtrat Rate mL/min Glucose Level 113 Calcium Level 8.0 L Lab Scanned Report BLOOD TRANSFUSION Subjective 24 Hr Interval Summary Subjective hx not possible: pt non-verbal Exam/Review of Systems Exam Vitals Vital Signs Date Temp Pulse Resp B/P (MAP) Pulse Ox O2 O2 Flow FiO2 Time Delivery Rate 09/12/18 64 15 135/53 99 17:00 (80) 09/12/18 99.0 16:00 09/12/18 Room Air 07:00 09/10/18 21 14:00 Intake and Output 09/11/18 09/11/18 09/12/18 1515:00 23:00 07:00 IntakeIntake Total 570 ml 1250 ml 1020 ml OutputOutput Total 450 ml 383 ml 300 ml BalanceBalance 120 ml 867 ml 720 ml Constitutional: non-verbal Respiratory: clear to auscultation Cardiovascular: regular rate and rhythm Gastrointestinal: soft; No distended Musculoskeletal: nl extremities to inspection Results Results 24hrs Laboratory Tests Test 09/11/18 19:03 09/12/18 04:21 09/12/18 04:59 Hemoglobin 10.9 #L 9.4 L White Blood Count 10.3 Red Blood Count 3.35 #L Hematocrit 28.9 #L Mean Corpuscular Volume 86.3 Mean Corpuscular Hemoglobin 28.1 L Mean Corpuscular 32.5 Hemoglobin Concent Red Cell Distribution Width 19.2 H Platelet Count 230 Mean Platelet Volume 10.4 Immature Granulocytes % 0.500 H Neutrophils % 74.4 Lymphocytes % 14.2 L Monocytes % 9.8 Eosinophils % 0.8 Basophils % 0.3 Nucleated Red Blood Cells % 0.0 Immature Granulocytes # 0.050 H Neutrophils # 7.7 H Lymphocytes # 1.5 Monocytes # 1.0 H Eosinophils # 0.1 Basophils # 0.0 Nucleated Red Blood Cells # 0.0 Sodium Level 145 H Potassium Level 3.5 # Chloride Level 114 H Carbon Dioxide Level 24 Anion Gap 7 Blood Urea Nitrogen 74 H Creatinine 2.64 H Est Glomerular Filtrat Rate mL/min Glucose Level 113 Calcium Level 8.0 L Lab Scanned Report BLOOD TRANSFUSION Medications Medication Current Medications Dextrose (D50w Syringe) ONCE PRN IV DECREASED GLUCOSE Last administered on 09/10/18at 13:42; Admin Dose 25 ML; Start 09/10/18 at 13:30 Sodium Chloride 1,000 ml @ 80 mls/hr [id number] IV Last administered on 09/12/18at 11:04; Admin Dose 80 MLS/HR; Start 09/10/18 at 14:32 IV Flush (NS 3 ml) 3 ml PER PROTOCOL IV ; Start 09/10/18 at 15:00 Ondansetron HCl (Zofran Inj) 4 mg Q6H PRN IV NAUSEA/VOMITING; Start 09/10/18 at 15:00 Morphine Sulfate (morphine) 2 mg Q4H PRN IV .SEVERE PAIN 7-10; Start 09/10/18 at 15:00 Ceftriaxone Sodium 50 ml @ 100 mls/hr Q24H IVPB Last administered on 09/12/18 13:00; Admin Dose 100 MLS/HR; Start 09/11/18 at 13:30 Amlodipine Besylate (Norvasc) 5 mg DAILY GTB Last administered on 09/12/18 08:19; Admin Dose 5 MG; Start 09/11/18 at 09:00 Clopidogrel Bisulfate (plaVIX) 75 mg DAILY GTB Last administered on 09/12/18 08:19; Admin Dose 75 MG; Start 09/11/18 at 09:00 Losartan Potassium (Cozaar) 50 mg DAILY GTB Last administered on 09/12/18 08:19; Admin Dose 50 MG; Start 09/11/18 at 09:00 Multivitamins Therapeutic (Theragran) 1 tab DAILY GTB Last administered on 09/12/18 08:19; Admin Dose 1 TAB; Start 09/11/18 at 09:00 Aspirin (Aspirin) 81 mg DAILY GTB Last administered on 09/12/18 08:19; Admin Dose 81 MG; Start 09/11/18 at 09:00 Vancomycin HCl (Vanco Iv Per Pharmacy) VANCOMYCIN PER PHARMACY PER PROTOCOL XX ; Start 09/11/18 at 12:00 Heparin Sodium (Porcine) (Heparin (5000 Units/1ml)) 5,000 unit BID SC Last administered on 09/12/18 08:27; Admin Dose 5,000 UNIT; Start 09/11/18 at 21:00 Bacitracin (Bacitracin Oint (Ud)) 1 applic BID TOP Last administered on 09/12/18 13:05; Admin Dose 1 APPLIC; Start 09/12/18 at 12:30; Stop 09/21/18 at 21:01 Vancomycin HCl (Vancomycin Oral Syringe) 250 mg Q6 GTB Last administered on 09/12/18at 17:38; Admin Dose 250 MG; Start 09/12/18 at 13:00 REGAN SANCHEZ Sep 12, 2018 18:36
[2018-09-13] MEDS: VANCOMYCIN HCL 250 MG/5ML POSYG GTB SCH ×4 (00:21→17:11)
[2018-09-13 03:40] VITALS: BP 159/76; PULSE 69; RESP 18
[2018-09-13] MEDS: SOD CHLORIDE 0.9% 1,000 ML IV SCH ×2 (05:02→14:10)
[2018-09-13 07:31] VITALS: BP 169/78; PULSE 66; RESP 20
[2018-09-13] MEDS: MULTIVITAMINS THERAPEUTIC TAB GTB SCH (08:31)
[2018-09-13] MEDS: ASPIRIN 81 MG TAB GTB SCH (08:31)
[2018-09-13] MEDS: LOSARTAN 50 MG TAB GTB SCH (08:31)
[2018-09-13] MEDS: CLOPIDOGREL 75 MG TAB GTB SCH (08:31)
[2018-09-13] MEDS: AMLODIPINE 5 MG TAB GTB SCH (08:32)
[2018-09-13] MEDS: BACITRACIN 0.9 GM OINT TOP SCH ×3 (09:00→21:00)
[2018-09-13] MEDS ORDERED: VANCOMYCIN HCL 1.25 GM in SOD CHLORIDE 0.9% 250 ML IVPB SCH (09:00)
[2018-09-13] MEDS: HEPARIN 5,000 UNIT/1 ML VIAL SC SCH ×2 (09:02→21:52)
[2018-09-13 11:36] VITALS: BP 147/70; PULSE 73; RESP 20
--- NOTE | 2018-09-13 12:12 | PN ---
Date/Time of Note Date/Time of Note DATE: 09/13/18 TIME: 12:09 Assessment/Plan VTE Prophylaxis Risk score (from Ns)>0 risk: 7 SCD applied (from Ns): Yes Pharmacological prophylaxis: heparin Lines/Catheters IV C[facility]ter Type (from [facility]): PORTACATH Assessment/Plan Hospital Course 1. 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 Sepsis with bacteremia Blood cultures are positive for staph species Patient is C. difficile positive Nares are MRSA positive Continue vancomycin IV and Rocephin IV Started vancomycin p.o. Bactroban for the nares ID consultation obtained Follow-up on cultures 3. Acute kidney injury on CKD likely secondary to sepsis and hemodynamics- improving Baseline creatinine unknown IV fluids Antibiotics Renal ultrasound with no evidence of hydronephrosis 4. History of ovarian cancer Unclear if patient is receiving chemotherapy 5. Dementia Patient resides in a snf and receives G-tube feeds Palliative care consultation obtained 6. Hyperkalemia secondary to renal failure Treated in ER 7. Normocytic anemia likely secondary to chronic disease and renal failure Monitor 8. Hypertension Continue home meds Prophylaxis: Heparin DC planning: Patient with poor prognosis, palliative care consultation obtained, downgrade to [facility] Result Diagram: 09/13/18 0526 09/13/18 0526 Results 24hrs Laboratory Tests Test 09/13/18 05:26 White Blood Count 8.4 Red Blood Count 3.52 L Hemoglobin 9.9 L Hematocrit 30.3 L Mean Corpuscular Volume 86.1 Mean Corpuscular Hemoglobin 28.1 L Mean Corpuscular Hemoglobin Concent 32.7 Red Cell Distribution Width 18.6 H Platelet Count 236 Mean Platelet Volume 10.1 Immature Granulocytes % 0.400 Neutrophils % 66.2 Lymphocytes % 18.9 Monocytes % 12.3 H Eosinophils % 1.8 Basophils % 0.4 Nucleated Red Blood Cells % 0.0 Immature Granulocytes # 0.030 Neutrophils # 5.5 Lymphocytes # 1.6 Monocytes # 1.0 H Eosinophils # 0.2 Basophils # 0.0 Nucleated Red Blood Cells # 0.0 Sodium Level 145 H Potassium Level 3.6 Chloride Level 115 H Carbon Dioxide Level 23 Anion Gap 7 Blood Urea Nitrogen 68 H Creatinine 1.91 H Est Glomerular Filtrat Rate mL/min Glucose Level 139 Calcium Level 7.7 L Magnesium Level 2.2 Random Vancomycin Level 6.8 Subjective 24 Hr Interval Summary Subjective hx not possible: pt non-verbal Exam/Review of Systems Exam Vitals Vital Signs Date Temp Pulse Resp B/P (MAP) Pulse Ox O2 O2 Flow FiO2 Time Delivery Rate 09/13/18 98.3 73 20 147/70 96 Room Air 11:36 (95) 09/10/18 21 14:00 Intake and Output 09/12/18 09/12/18 09/13/18 1515:00 23:00 07:00 IntakeIntake Total 1200 ml 670 ml OutputOutput Total 350 ml 200 ml 600 ml BalanceBalance 850 ml 470 ml -600 ml Constitutional: non-verbal Respiratory: clear to auscultation Cardiovascular: regular rate and rhythm Gastrointestinal: soft; No distended Musculoskeletal: nl extremities to inspection Results Results 24hrs Laboratory Tests Test 09/13/18 05:26 White Blood Count 8.4 Red Blood Count 3.52 L Hemoglobin 9.9 L Hematocrit 30.3 L Mean Corpuscular Volume 86.1 Mean Corpuscular Hemoglobin 28.1 L Mean Corpuscular Hemoglobin Concent 32.7 Red Cell Distribution Width 18.6 H Platelet Count 236 Mean Platelet Volume 10.1 Immature Granulocytes % 0.400 Neutrophils % 66.2 Lymphocytes % 18.9 Monocytes % 12.3 H Eosinophils % 1.8 Basophils % 0.4 Nucleated Red Blood Cells % 0.0 Immature Granulocytes # 0.030 Neutrophils # 5.5 Lymphocytes # 1.6 Monocytes # 1.0 H Eosinophils # 0.2 Basophils # 0.0 Nucleated Red Blood Cells # 0.0 Sodium Level 145 H Potassium Level 3.6 Chloride Level 115 H Carbon Dioxide Level 23 Anion Gap 7 Blood Urea Nitrogen 68 H Creatinine 1.91 H Est Glomerular Filtrat Rate mL/min Glucose Level 139 Calcium Level 7.7 L Magnesium Level 2.2 Random Vancomycin Level 6.8 Medications Medication Current Medications Dextrose (D50w Syringe) ONCE PRN IV DECREASED GLUCOSE Last administered on 09/10/18at 13:42; Admin Dose 25 ML; Start 09/10/18 at 13:30 Sodium Chloride 1,000 ml @ 80 mls/hr [id number] IV Last administered on 09/12/18at 11:04; Admin Dose 80 MLS/HR; Start 09/10/18 at 14:32 IV Flush (NS 3 ml) 3 ml PER PROTOCOL IV ; Start 09/10/18 at 15:00 Ondansetron HCl (Zofran Inj) 4 mg Q6H PRN IV NAUSEA/VOMITING; Start 09/10/18 at 15:00 Morphine Sulfate (morphine) 2 mg Q4H PRN IV .SEVERE PAIN 7-10; Start 09/10/18 at 15:00 Ceftriaxone Sodium 50 ml @ 100 mls/hr Q24H IVPB Last administered on 09/12/18 13:00; Admin Dose 100 MLS/HR; Start 09/11/18 at 13:30 Amlodipine Besylate (Norvasc) 5 mg DAILY GTB Last administered on 09/13/18 08:32; Admin Dose 5 MG; Start 09/11/18 at 09:00 Clopidogrel Bisulfate (plaVIX) 75 mg DAILY GTB Last administered on 09/13/18 08:31; Admin Dose 75 MG; Start 09/11/18 at 09:00 Losartan Potassium (Cozaar) 50 mg DAILY GTB Last administered on 09/13/18 08:31; Admin Dose 50 MG; Start 09/11/18 at 09:00 Multivitamins Therapeutic (Theragran) 1 tab DAILY GTB Last administered on 09/13/18 08:31; Admin Dose 1 TAB; Start 09/11/18 at 09:00 Aspirin (Aspirin) 81 mg DAILY GTB Last administered on 09/13/18 08:31; Admin Dose 81 MG; Start 09/11/18 at 09:00 Heparin Sodium (Porcine) (Heparin (5000 Units/1ml)) 5,000 unit BID SC Last administered on 09/13/18 09:02; Admin Dose 5,000 UNIT; Start 09/11/18 at 21:00 Bacitracin (Bacitracin Oint (Ud)) 1 applic BID TOP Last administered on 09/12/18 20:51; Admin Dose 1 APPLIC; Start 09/12/18 at 12:30; Stop 09/21/18 at 21:01 Vancomycin HCl (Vancomycin Oral Syringe) 250 mg Q6 GTB Last administered on 09/13/18 05:36; Admin Dose 250 MG; Start 09/12/18 at 13:00 REGAN SANCHEZ Sep 13, 2018 12:12
[2018-09-13 13:46] VITALS: BP 177/77; PULSE 69; RESP 22
[2018-09-13] MEDS: CEFTRIAXONE 1 GM/50 ML (PMX) 50 ML IVPB SCH (14:16)
[2018-09-13 14:23] VITALS: BP 143/68; PULSE 67; RESP 18
--- NOTE | 2018-09-13 16:26 | CONS ---
Assessment/Plan Assessment/Plan Hospital Course (Demo Recall) ID PROGRESS NOTE CURRENT ABX: DAY # =>Vanco LIQ + Ceftriaxone s/p Vanco IV 09/13/[id number]/13/[id number] 24H INTERVAL SUMMARY * Elderly F, VSS, NAD, lethargic, noncommunicative * NO fevers, WBC normalizes -- chart reviewed MICRO * 09/11/18 (+)MRSA Nares * 09/11/18 (+) C.Diff C DIFFICILE DNA AMPLIFICATION Final CYTOTOXIGENIC C DIFFICILE POSITIVE (Ref Range Neg) * 09/10/18 URINE CX (+) URINE CULTURE Final Organism 1 THANG ALBICANS COLONY COUNT >100,000 CFU/ml * 09/10/18 BCX (+) 2/2 Bottles from ED = CoNS -- suspected skin contmainated samples Organism 1 COAGULASE NEGATIVE STAPH Organism 2 COAGULASE NEGATIVE STAPH#2 DIAGNOSTIC IMAGING * 09/11/18 CXR: 1. No evidence of acute cardiopulmonary process. 2. Aortic atherosclerosis. 3. Right-sided Port-A-Cath tip is in the SVC. * 2D ECHO: Conclusions: Normal left ventricular systolic function. Normal left ventricular cavity size. Normal left ventricular wall thickness. Mild global left ventricular systolic dysfunction. Ejection fraction is visually estimated at 40 %. Tissue Doppler/Mitral Doppler indices are consistent with impaired relaxation (Stage I diastolic dysfunction). These segments of the LV are hypokinetic apex and apical septum. Mitral valve leaflets appear mildly thickened. Moderate mitral annular calcification. Mild to moderate mitral valve regurgitation. Normal appearance of the tricuspid valve. The estimated Peak RVSP is 34 mmHg. There is trace tricuspid regurgitation. PHYSICAL EXAMINATION: GENERAL: VSS, NAD, lethargic, non-verbal HEENT: AT, NC, NECK: Supple, CHEST: Rise symmetrical HEART: Pulse RRR ABDOMEN: Soft EXTREMITIES: Warm, dry SKIN: No rash, no diaphoresis ID ASSESSMENT 87 yo F w/Senile Dementia admit with: Acute Encephalopathy (CVA + Toxic Metabolic)/ chronic underlying dementia * CT head showed an acute/recent left temporal occipital and right parietal occipital infarctions. SIRS w/low grade temps and tachycardia due to UTI & C.Diff Yeast UTI C.Diff Colitis CoNS (+)BCx 2/2 bottles x 2 species -- most consistent with SKIN CONTAMINANTS * 2D ECHO no mention of Vegetations GERD Dysphagia -> PEG Diabetes HTN CAD HFrEF ~40% w/mild diastolic dysfunction - euvolemic Acute/CKD Anemia Hx of ovarian cancer -- has Port-a-Cath in place (+)MRSA Nares->Bactroban ABX ALLERGIES: KNDA INVASIVES: PIV CURRENT ABX: DAY # =>Vanco LIQ PO + Start Doxycycline x5 days + Diflucan DC Ceftriaxone DC Vanco IV ID RECOMMENDATIONS/PLAN: 1. Started on Vanco LIQ 250mg PO for C.Diff 2. Give short course of Diflucan for yeast UTI -- started on Plavix; hence limit Diflucan to 3 days only 3. Let's treat MRSA nares colonization with Bactroban ointment to bilat nares and Doxycycline IV x 5 days * She has an indwelling Port-A-Cath at risk due to MRSA 4. Vanco IV DC'd doubt CoNS bacteria is true -- drawn peripherally in ED more consistent w/skin contaminants . . Consultation Date/Type/Reason Admit Date/Time Sep 10, 2018 at 13:43 Initial Consult Date Requesting Provider: REGAN SANCHEZ Date/Time of Note DATE: 09/13/18 TIME: 15:57 Exam/Review of Systems Exam Vitals Vital Signs Date Temp Pulse Resp B/P (MAP) Pulse Ox O2 O2 Flow FiO2 Time Delivery Rate 09/13/18 67 18 143/68 14:23 (93) 09/13/18 98.8 97 Room Air 13:46 09/10/18 21 14:00 Intake and Output 09/12/18 09/12/18 09/13/18 1515:00 23:00 07:00 IntakeIntake Total 1200 ml 670 ml OutputOutput Total 350 ml 200 ml 600 ml BalanceBalance 850 ml 470 ml -600 ml Results Result Diagram: 09/13/18 0526 09/13/18 0526 Results 24hrs Laboratory Tests Test 09/13/18 05:26 White Blood Count 8.4 Red Blood Count 3.52 L Hemoglobin 9.9 L Hematocrit 30.3 L Mean Corpuscular Volume 86.1 Mean Corpuscular Hemoglobin 28.1 L Mean Corpuscular Hemoglobin Concent 32.7 Red Cell Distribution Width 18.6 H Platelet Count 236 Mean Platelet Volume 10.1 Immature Granulocytes % 0.400 Neutrophils % 66.2 Lymphocytes % 18.9 Monocytes % 12.3 H Eosinophils % 1.8 Basophils % 0.4 Nucleated Red Blood Cells % 0.0 Immature Granulocytes # 0.030 Neutrophils # 5.5 Lymphocytes # 1.6 Monocytes # 1.0 H Eosinophils # 0.2 Basophils # 0.0 Nucleated Red Blood Cells # 0.0 Sodium Level 145 H Potassium Level 3.6 Chloride Level 115 H Carbon Dioxide Level 23 Anion Gap 7 Blood Urea Nitrogen 68 H Creatinine 1.91 H Est Glomerular Filtrat Rate mL/min Glucose Level 139 Calcium Level 7.7 L Magnesium Level 2.2 Random Vancomycin Level 6.8 Medications Medication Current Medications Dextrose (D50w Syringe) ONCE PRN IV DECREASED GLUCOSE Last administered on 09/10/18 13:42; Admin Dose 25 ML; Start 09/10/18 at 13:30 Sodium Chloride 1,000 ml @ 80 mls/hr [id number] IV Last administered on 09/13/18 14:10; Admin Dose 80 MLS/HR; Start 09/10/18 at 14:32 IV Flush (NS 3 ml) 3 ml PER PROTOCOL IV ; Start 09/10/18 at 15:00 Ondansetron HCl (Zofran Inj) 4 mg Q6H PRN IV NAUSEA/VOMITING; Start 09/10/18 at 15:00 Morphine Sulfate (morphine) 2 mg Q4H PRN IV .SEVERE PAIN 7-10; Start 09/10/18 at 15:00 Ceftriaxone Sodium 50 ml @ 100 mls/hr Q24H IVPB Last administered on 09/13/18 14:16; Admin Dose 100 MLS/HR; Start 09/11/18 at 13:30 Amlodipine Besylate (Norvasc) 5 mg DAILY GTB Last administered on 09/13/18 08:32; Admin Dose 5 MG; Start 09/11/18 at 09:00 Clopidogrel Bisulfate (plaVIX) 75 mg DAILY GTB Last administered on 09/13/18 08:31; Admin Dose 75 MG; Start 09/11/18 at 09:00 Losartan Potassium (Cozaar) 50 mg DAILY GTB Last administered on 09/13/18 08:31; Admin Dose 50 MG; Start 09/11/18 at 09:00 Multivitamins Therapeutic (Theragran) 1 tab DAILY GTB Last administered on 09/13/18 08:31; Admin Dose 1 TAB; Start 09/11/18 at 09:00 Aspirin (Aspirin) 81 mg DAILY GTB Last administered on 09/13/18 08:31; Admin Dose 81 MG; Start 09/11/18 at 09:00 Heparin Sodium (Porcine) (Heparin (5000 Units/1ml)) 5,000 unit BID SC Last administered on 09/13/18 09:02; Admin Dose 5,000 UNIT; Start 09/11/18 at 21:00 Bacitracin (Bacitracin Oint (Ud)) 1 applic BID TOP Last administered on 09/13/18 12:38; Admin Dose 1 APPLIC; Start 09/12/18 at 12:30; Stop 09/21/18 at 21:01 Vancomycin HCl (Vancomycin Oral Syringe) 250 mg Q6 GTB Last administered on 09/13/18 12:37; Admin Dose 250 MG; Start 09/12/18 at 13:00 OMAR HERNANDEZ NP Sep 13, 2018 16:07
[2018-09-13] MEDS ORDERED: FLUCONAZOLE 200 MG (PMX) 100 ML IVPB ONE (16:30)
[2018-09-13 19:30] VITALS: BP 180/83; PULSE 70; RESP 17
--- NOTE | 2018-09-13 19:51 | CONS ---
DATE OF ADMISSION: 09/10/2018 DATE OF CONSULTATION: 09/13/2018 TYPE OF CONSULTATION: Infectious disease. REASON FOR CONSULTATION: Antibiotic management. HISTORY OF PRESENT ILLNESS: Clari Mcnulty is an 87-year-old female with numerous problems, who comes in more altered than usual. Her past problems include: 1. Senile dementia. 2. Chronic renal disease. 3. Coronary artery disease. 4. Chronic diastolic heart failure. 5. Hypertension. 6. Anemia. 7. 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 8. GERD. 9. Dysphagia with G-tube placement. The patient was brought in with altered mental status. She was not at her baseline. She has had inc reasing agitation and did not respond to her usual Ativan and was started on BuSpar. The patient has a Port-A-Cath in addition to her other problems which includes diabetes, hyperlipidemia and those li sted. PAST MEDICAL HISTORY: As outlined. FAMILY HISTORY: Noncontributory. SOCIAL HISTORY: She does not smoke, drink or abuse drugs. ALLERGIES: NONE TO PENICILLIN, SULFA OR FOODS. On admission, her white count was 12.8 with 80% neutrophils, H and H of 6.9 and 21.6, platelet count 253,000. BUN and creatinine is 81/3.18, glucose of 102. PHYSICAL EXAMINATION: GENERAL: The patient was admitted in severe distress and was uncooperative. VITAL SIGNS: Stable. SKIN: Without generalized rash. She had some ecchymosis and bruising on the lower extremities. HEENT: Within normal limits. NECK: Supple. LYMPH NODES: None palpable. CHEST: Decreased breath sounds at the bases. HEART: Without murmur or gallop. ABDOMEN: Soft, nontender. G-tube in place without erythema, induration or drainage. EXTREMITIES: Without cyanosis, clubbing or edema. Without flank tenderness. RECTAL AND GENITAL: Deferred. NEUROLOGICAL: The patient with senile dementia. She moves all extremities. No focal neurological a bnormality. HOSPITAL COURSE: Urine shows 3+ leukocyte esterase, negative nitrite, 148 white cells per high power ed field with many budding yeasts. The patient was started on ceftriaxone. CT scan of the brain beth ws mild to moderate generalized cerebral volume loss, extensive periventricular hypoattenuation sugge sting chronic microvascular ischemic changes. There are moderate to extensive vascular calcification s within the intracranial carotid arteries, acute recent left temporal occipital and right parietal o ccipital infarctions. Consider CT of the head and neck or noncontrast MRI of the brain as clinically warranted. No acute intracranial hemorrhage or extraaxial collection. The patient was seen by Dr. Mcintosh. BUN is greater than 90. CT scan of the head shows bilateral hypodensities suggestive of suba cute infarction for which neurology was consulted. A CTA was done which confirms apical hypokinesis, which likely predisposed to clot formation. The patient was started on fluconazole, doxycycline. S he was noted to Have barbara albicans in the urine, coagulase negative staph in her blood x2 and her C. difficile was positive. She has positive MRSA in nares. C. difficile is positive. Urine grew gr eater than 10 to the 5th Barbara albicans. Blood cultures 2/2 bottles were suspected contaminants, b ut she has a right-sided Port-A-Cath and she had 2 sets of blood cultures 10 minutes apart that were positive which seem to implicate the Port-A-Cath. She does have UTI and C. difficile. She has a G-t ube, Port-A-Cath in place because of ovarian carcinoma. She was started on vancomycin liquid 250 q.6 . She is on fluconazole. MRSA colonization was treated with Bactroban and we started her on doxycyc line for 5 days. She is on vancomycin IV. I am going to repeat blood cultures x2 if they were not d one already and they were not. I will dictate my findings to the hospitalist and to Dr. Mcintosh. Dictated By: NEYDA APONTE MD, JD/EMILY Conf#: [id number] DID#: [id number] CC: REGAN SANCHEZ MD;*End*
[2018-09-13] MEDS ORDERED: hydrALAzine 20 MG INJ IV ONE (20:00)
[2018-09-13] MEDS: DOXYCYCLINE 100 MG in SOD CHLORIDE 0.9% 250 ML IVPB SCH (21:51)
[2018-09-13] MEDS: MUPIROCIN 2% 22 GM OINT TOP SCH (21:55)
[2018-09-14 02:00] VITALS: BP 172/74; PULSE 86; RESP 18
[2018-09-14] MEDS: VANCOMYCIN HCL 250 MG/5ML POSYG GTB SCH ×4 (05:20→17:02)
[2018-09-14] MEDS: SOD CHLORIDE 0.9% 1,000 ML IV SCH ×2 (05:21→17:02)
[2018-09-14 07:47] VITALS: BP 193/83; PULSE 70; RESP 20
[2018-09-14 07:52] VITALS: BP 163/74; PULSE 79; RESP 15
[2018-09-14] MEDS: HEPARIN 5,000 UNIT/1 ML VIAL SC SCH ×2 (08:19→21:18)
[2018-09-14] MEDS: DOXYCYCLINE 100 MG in SOD CHLORIDE 0.9% 250 ML IVPB SCH ×2 (08:21→21:17)
[2018-09-14] MEDS: CLOPIDOGREL 75 MG TAB GTB SCH (08:21)
[2018-09-14] MEDS: LOSARTAN 50 MG TAB GTB SCH (08:22)
[2018-09-14] MEDS: ASPIRIN 81 MG TAB GTB SCH (08:22)
[2018-09-14] MEDS: AMLODIPINE 5 MG TAB GTB SCH (08:22)
[2018-09-14] MEDS: MULTIVITAMINS THERAPEUTIC TAB GTB SCH (08:22)
[2018-09-14] MEDS: MUPIROCIN 2% 22 GM OINT TOP SCH ×2 (08:23→21:12)
[2018-09-14] MEDS: BACITRACIN 0.9 GM OINT TOP SCH (08:25)
[2018-09-14] MEDS: BALSAM PERU/CASTOR OIL 60 GM TUBE TOP SCH ×2 (12:23→21:13)
[2018-09-14 14:24] VITALS: BP 187/79; PULSE 68; RESP 18
[2018-09-14] MEDS ORDERED: FLUCONAZOLE 100 MG TAB PO ONE (16:30)
--- NOTE | 2018-09-14 18:16 | PN ---
Date/Time of Note Date/Time of Note DATE: 09/14/18 TIME: 18:15 Assessment/Plan VTE Prophylaxis Risk score (from Ns)>0 risk: 9 SCD applied (from Ns): Yes Pharmacological prophylaxis: heparin Lines/Catheters IV Catheter Type (from Nrsg): portacath Urinary Cath still in place: Yes Reason Cath still needed: urinary retention Assessment/Plan Hospital Course 1. 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 Sepsis with bacteremia Blood cultures are positive for staph species Patient is C. difficile positive Nares are MRSA positive Continue vancomycin IV and Rocephin IV Started vancomycin p.o. Bactroban for the nares ID consultation obtained Follow-up on cultures 3. Acute kidney injury on CKD likely secondary to sepsis and hemodynamics- improving Baseline creatinine unknown IV fluids Antibiotics Renal ultrasound with no evidence of hydronephrosis 4. History of ovarian cancer Unclear if patient is receiving chemotherapy 5. Dementia Patient resides in a fdc and receives G-tube feeds Palliative care consultation obtained 6. Hyperkalemia secondary to renal failure Treated in ER 7. Normocytic anemia likely secondary to chronic disease and renal failure Monitor 8. Hypertension Continue home meds Prophylaxis: Heparin DC planning: Patient with poor prognosis, palliative care consultation obtained, downgrade to [facility] Result Diagram: 09/13/18 0526 09/13/18 05 Subjective 24 Hr Interval Summary Free Text/Dictation Stable No events Less diarrha Exam/Review of Systems Exam Vitals Vital Signs Date Temp Pulse Resp B/P (MAP) Pulse Ox O2 O2 Flow FiO2 Time Delivery Rate 09/14/18 97.7 68 18 187/79 98 Room Air 14:24 (115) 09/10/18 21 14:00 Intake and Output 09/13/18 09/13/18 09/14/18 1515:00 23:00 07:00 IntakeIntake Total 900 ml 730 ml 550 ml OutputOutput Total 400 ml 325 ml BalanceBalance 500 ml 405 ml 550 ml Constitutional: alert, oriented, well developed Psych: no complaints, nl mood/affect Head: normocephalic, atraumatic Eyes: nl conjunctiva, EOMI, nl lids, nl sclera, PERRL ENMT: nl external ears & nose, nl lips & teeth, nl nasal mucosa & septum Neck: supple, non-tender Respiratory: clear to auscultation, normal air movement Cardiovascular: regular rate and rhythm, nl pulses Gastrointestinal: soft, nl liver, spleen, non-tender Musculoskeletal: nl extremities to inspection, nl gait and stance Extremities: normal pulses Neurological: ELIGIBILITY TECHNICIAN II-XII intact, nl mental status, nl speech, nl strength Skin: nl turgor; No rash or lesions Lymph: nl lymph nodes Medications Medication Current Medications Dextrose (D50w Syringe) ONCE PRN IV DECREASED GLUCOSE Last administered on 09/10/18 13:42; Admin Dose 25 ML; Start 09/10/18 at 13:30 Sodium Chloride 1,000 ml @ 80 mls/hr [id number] IV Last administered on 09/14/18 17:02; Admin Dose 80 MLS/HR; Start 09/10/18 at 14:32 IV Flush (NS 3 ml) 3 ml PER PROTOCOL IV ; Start 09/10/18 at 15:00 Ondansetron HCl (Zofran Inj) 4 mg Q6H PRN IV NAUSEA/VOMITING; Start 09/10/18 at 15:00 Morphine Sulfate (morphine) 2 mg Q4H PRN IV .SEVERE PAIN 7-10; Start 09/10/18 at 15:00 Amlodipine Besylate (Norvasc) 5 mg DAILY GTB Last administered on 09/14/18 08:22; Admin Dose 5 MG; Start 09/11/18 at 09:00 Clopidogrel Bisulfate (plaVIX) 75 mg DAILY GTB Last administered on 09/14/18 08:21; Admin Dose 75 MG; Start 09/11/18 at 09:00 Multivitamins Therapeutic (Theragran) 1 tab DAILY GTB Last administered on 09/14/18 08:22; Admin Dose 1 TAB; Start 09/11/18 at 09:00 Aspirin (Aspirin) 81 mg DAILY GTB Last administered on 09/14/18 08:22; Admin Dose 81 MG; Start 09/11/18 at 09:00 Heparin Sodium (Porcine) (Heparin (5000 Units/1ml)) 5,000 unit BID SC Last administered on 09/14/18 08:19; Admin Dose 5,000 UNIT; Start 09/11/18 at 21:00 Bacitracin (Bacitracin Oint (Ud)) 1 applic BID TOP Last administered on 09/13/18at 12:38; Admin Dose 1 APPLIC; Start 09/12/18 at 12:30; Stop 09/21/18 at 21:01 Vancomycin HCl (Vancomycin Oral Syringe) 250 mg Q6 GTB Last administered on 09/14/18at 17:02; Admin Dose 250 MG; Start 09/12/18 at 13:00 Mupirocin (Bactroban) 1 applic BID TOP Last administered on 09/14/18at 08:23; Admin Dose 1 APPLIC; Start 09/13/18 at 21:00; Stop 09/18/18 at 20:59 Doxycycline Hyclate 100 mg/ Sodium Chloride 250 ml @ 250 mls/hr Q12 IVPB Last administered on 09/14/18at 08:21; Admin Dose 250 MLS/HR; Start 09/13/18 at 21:00; Stop 09/18/18 at 20:59 KASSY CURTIS MD Sep 14, 2018 18:16
[2018-09-14 19:53] VITALS: BP 162/69; PULSE 69; RESP 18
--- NOTE | 2018-09-14 20:31 | CONS ---
Assessment/Plan Assessment/Plan Hospital Course (Demo Recall) ID PROGRESS NOTE CURRENT ABX: DAY # =>Vanco LIQ + Ceftriaxone s/p Vanco IV 24H INTERVAL SUMMARY * Sleeping -- clinically improved per RN and chart review * NO fevers, WBC normalizes --VSS, NAD, lethargic, noncommunicative MICRO * 09/11/18 (+)MRSA Nares * 09/11/18 (+) C.Diff C DIFFICILE DNA AMPLIFICATION Final CYTOTOXIGENIC C DIFFICILE POSITIVE (Ref Range Neg) * 09/10/18 URINE CX (+) URINE CULTURE Final Organism 1 THANG ALBICANS COLONY COUNT >100,000 CFU/ml * 09/10/18 BCX (+) 2/2 Bottles from ED = CoNS -- suspected skin contmainated samples Organism 1 COAGULASE NEGATIVE STAPH Organism 2 COAGULASE NEGATIVE STAPH#2 DIAGNOSTIC IMAGING * 09/11/18 CXR: 1. No evidence of acute cardiopulmonary process. 2. Aortic atherosclerosis. 3. Right-sided Port-A-Cath tip is in the SVC. * 2D ECHO: Conclusions: Normal left ventricular systolic function. Normal left ventricular cavity size. Normal left ventricular wall thickness. Mild global left ventricular systolic dysfunction. Ejection fraction is visually estimated at 40 %. Tissue Doppler/Mitral Doppler indices are consistent with impaired relaxation (Stage I diastolic dysfunction). These segments of the LV are hypokinetic apex and apical septum. Mitral valve leaflets appear mildly thickened. Moderate mitral annular calcification. Mild to moderate mitral valve regurgitation. Normal appearance of the tricuspid valve. The estimated Peak RVSP is 34 mmHg. There is trace tricuspid regurgitation. PHYSICAL EXAMINATION: GENERAL: VSS, NAD, lethargic, non-verbal HEENT: AT, NC, NECK: Supple, CHEST: Rise symmetrical HEART: Pulse RRR ABDOMEN: Soft EXTREMITIES: Warm, dry SKIN: No rash, no diaphoresis ID ASSESSMENT 87 yo F w/Senile Dementia admit with: Acute Encephalopathy (CVA + Toxic Metabolic)/ chronic underlying dementia * CT head showed an acute/recent left temporal occipital and right parietal occipital infarctions. 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 Started on Vanco LIQ 250mg PO for C.Diff 2. Give short course of Diflucan for yeast UTI -- started on Plavix; hence limit Diflucan to 3 days only 3. Let's treat MRSA nares colonization with Bactroban ointment to bilat nares and Doxycycline IV x 5 days * She has an indwelling Port-A-Cath at risk due to MRSA 4. Vanco IV DC'd doubt CoNS bacteria is true -- drawn peripherally in ED more consistent w/skin contaminants . . Consultation Date/Type/Reason Admit Date/Time Sep 10, 2018 at 13:43 Initial Consult Date Requesting Provider: REGAN SANCHEZ Date/Time of Note DATE: 09/14/18 TIME: 20:29 Exam/Review of Systems Exam Vitals Vital Signs Date Temp Pulse Resp B/P (MAP) Pulse Ox O2 O2 Flow FiO2 Time Delivery Rate 09/14/18 98.6 69 18 162/69 100 19:53 (100) 09/14/18 Room Air 14:24 09/10/18 21 14:00 Intake and Output 09/13/18 09/13/18 09/14/18 1515:00 23:00 07:00 IntakeIntake Total 900 ml 730 ml 550 ml OutputOutput Total 400 ml 325 ml BalanceBalance 500 ml 405 ml 550 ml Results Result Diagram: 09/13/18 0509/13/18 05 Medications Medication Current Medications Dextrose (D50w Syringe) ONCE PRN IV DECREASED GLUCOSE Last administered on 09/10/18at 13:42; Admin Dose 25 ML; Start 09/10/18 at 13:30 IV Flush (NS 3 ml) 3 ml PER PROTOCOL IV ; Start 09/10/18 at 15:00 Ondansetron HCl (Zofran Inj) 4 mg Q6H PRN IV NAUSEA/VOMITING; Start 09/10/18 at 15:00 Morphine Sulfate (morphine) 2 mg Q4H PRN IV .SEVERE PAIN 7-10; Start 09/10/18 at 15:00 Amlodipine Besylate (Norvasc) 5 mg DAILY GTB Last administered on 09/14/18 08:22; Admin Dose 5 MG; Start 09/11/18 at 09:00 Clopidogrel Bisulfate (plaVIX) 75 mg DAILY GTB Last administered on 09/14/18 08:21; Admin Dose 75 MG; Start 09/11/18 at 09:00 Multivitamins Therapeutic (Theragran) 1 tab DAILY GTB Last administered on 09/14/18 08:22; Admin Dose 1 TAB; Start 09/11/18 at 09:00 Aspirin (Aspirin) 81 mg DAILY GTB Last administered on 09/14/18 08:22; Admin Dose 81 MG; Start 09/11/18 at 09:00 Heparin Sodium (Porcine) (Heparin (5000 Units/1ml)) 5,000 unit BID SC Last administered on 09/14/18 08:19; Admin Dose 5,000 UNIT; Start 09/11/18 at 21:00 Bacitracin (Bacitracin Oint (Ud)) 1 applic BID TOP Last administered on 09/13/18 12:38; Admin Dose 1 APPLIC; Start 09/12/18 at 12:30; Stop 09/21/18 at 21:01 Vancomycin HCl (Vancomycin Oral Syringe) 250 mg Q6 GTB Last administered on 09/14/18 17:02; Admin Dose 250 MG; Start 09/12/18 at 13:00 Mupirocin (Bactroban) 1 applic BID TOP Last administered on 09/14/18 08:23; Admin Dose 1 APPLIC; Start 09/13/18 at 21:00; Stop 09/18/18 at 20:59 Doxycycline Hyclate 100 mg/ Sodium Chloride 250 ml @ 250 mls/hr Q12 IVPB Last administered on 09/14/18 08:21; Admin Dose 250 MLS/HR; Start 09/13/18 at 21:00; Stop 09/18/18 at 20:59 OMAR HERNANDEZ [employer]SEM[employer] Sep 14, 2018 20:31
[2018-09-15] MEDS: VANCOMYCIN HCL 250 MG/5ML POSYG GTB SCH ×4 (00:16→19:01)
[2018-09-15 01:45] VITALS: BP 163/72; PULSE 75; RESP 18
[2018-09-15 07:52] VITALS: BP 168/77; PULSE 69; RESP 18
[2018-09-15] MEDS: MULTIVITAMINS THERAPEUTIC TAB GTB SCH (08:24)
[2018-09-15] MEDS: ASPIRIN 81 MG TAB GTB SCH (08:24)
[2018-09-15] MEDS: CLOPIDOGREL 75 MG TAB GTB SCH (08:24)
[2018-09-15] MEDS: AMLODIPINE 5 MG TAB GTB SCH ×2 (08:25→22:27)
[2018-09-15] MEDS: DOXYCYCLINE 100 MG in SOD CHLORIDE 0.9% 250 ML IVPB SCH ×2 (08:25→22:28)
[2018-09-15] MEDS: HEPARIN 5,000 UNIT/1 ML VIAL SC SCH ×2 (08:26→22:26)
[2018-09-15] MEDS: MUPIROCIN 2% 22 GM OINT TOP SCH ×2 (08:38→22:28)
[2018-09-15] MEDS: BALSAM PERU/CASTOR OIL 60 GM TUBE TOP SCH ×2 (08:38→22:28)
[2018-09-15] MEDS: BACITRACIN 0.9 GM OINT TOP SCH ×2 (09:00→22:27)
[2018-09-15 10:25] VITALS: BP 138/65; PULSE 75; RESP 18
[2018-09-15 14:08] VITALS: BP 163/72; PULSE 69; RESP 18
--- NOTE | 2018-09-15 15:50 | PN ---
Date/Time of Note Date/Time of Note DATE: 09/15/18 TIME: 15:47 Assessment/Plan VTE Prophylaxis Risk score (from Ns)>0 risk: 9 SCD applied (from Ns): Yes Pharmacological prophylaxis: heparin Lines/Catheters IV Catheter Type (from Nrsg): Elvira cath Urinary Cath still in place: No Assessment/Plan Hospital Course 87 yo female with dementia presents with sepsis and acute encephelopathy Subacute CVA - CT head once again shows acute/recent left temporal occipital and right parietal occipital infarctions - Aspirin and plavix per neurology Sepsis - CoNS is likely a contaminent per ID C Diff diarrhea: - continue PO Vanco course Gabby UTI: - complete diflucan course Acute kidney injury on CKD likely secondary to sepsis and hemodynamics-improving - Improved, trend creatinine 4. History of ovarian cancer Unclear if patient is receiving chemotherapy 5. Dementia Patient resides in a shelter and receives G-tube feeds Palliative care consultation obtained 6. Hyperkalemia secondary to renal failure Treated in ER 7. Normocytic anemia likely secondary to chronic disease and renal failure Monitor 8. Hypertension Continue home meds Prophylaxis: Heparin DC planning: Patient with poor prognosis, palliative care consultation obtained. Stable for DC to facility Result Diagram: 09/13/18 0509/13/18 05 Subjective 24 Hr Interval Summary Free Text/Dictation Stable Appears very comfortable Diarrhea resolved Exam/Review of Systems Exam Vitals Vital Signs Date Temp Pulse Resp B/P (MAP) Pulse Ox O2 O2 Flow FiO2 Time Delivery Rate 09/15/18 97.8 69 18 163/72 96 14:08 (102) 09/15/18 Room Air 07:52 Intake and Output 09/14/18 09/14/18 09/15/18 1515:00 23:00 07:00 IntakeIntake Total 250 ml 2090 ml 800 ml OutputOutput Total 1200 ml 300 ml BalanceBalance -950 ml 1790 ml 800 ml Constitutional: alert, oriented, well developed Psych: no complaints, nl mood/affect Head: normocephalic, atraumatic Eyes: nl conjunctiva, EOMI, nl lids, nl sclera, PERRL ENMT: nl external ears & nose, nl lips & teeth, nl nasal mucosa & septum Neck: supple, non-tender Respiratory: clear to auscultation, normal air movement Cardiovascular: regular rate and rhythm, nl pulses Gastrointestinal: soft, nl liver, spleen, non-tender Musculoskeletal: nl extremities to inspection, nl gait and stance Extremities: normal pulses Neurological: IC ENGINEER II-XII intact, nl mental status, nl speech, nl strength Skin: nl turgor; No rash or lesions Lymph: nl lymph nodes Medications Medication Current Medications Dextrose (D50w Syringe) ONCE PRN IV DECREASED GLUCOSE Last administered on 09/10 13:42; Admin Dose 25 ML; Start 09/10/18 at 13:30 IV Flush (NS 3 ml) 3 ml PER PROTOCOL IV ; Start 09/10/18 at 15:00 Ondansetron HCl (Zofran Inj) 4 mg Q6H PRN IV NAUSEA/VOMITING; Start 09/10/18 at 15:00 Morphine Sulfate (morphine) 2 mg Q4H PRN IV .SEVERE PAIN 7-10; Start 09/10/18 at 15:00 Clopidogrel Bisulfate (plaVIX) 75 mg DAILY GTB Last administered on 09/15/18 08:24; Admin Dose 75 MG; Start 09/11/18 at 09:00 Multivitamins Therapeutic (Theragran) 1 tab DAILY GTB Last administered on 09/15/18 08:24; Admin Dose 1 TAB; Start 09/11/18 at 09:00 Aspirin (Aspirin) 81 mg DAILY GTB Last administered on 09/15/18 08:24; Admin Dose 81 MG; Start 09/11/18 at 09:00 Heparin Sodium (Porcine) (Heparin (5000 Units/1ml)) 5,000 unit BID SC Last administered on 09/15/18 08:26; Admin Dose 5,000 UNIT; Start 09/11/18 at 21:00 Bacitracin (Bacitracin Oint (Ud)) 1 applic BID TOP Last administered on 09/13/18 12:38; Admin Dose 1 APPLIC; Start 09/12/18 at 12:30; Stop 09/21/18 at 21:01 Vancomycin HCl (Vancomycin Oral Syringe) 250 mg Q6 GTB Last administered on 09/15/18 14:47; Admin Dose 250 MG; Start 09/12/18 at 13:00 Mupirocin (Bactroban) 1 applic BID TOP Last administered on 09/15/18 08:38; Admin Dose 1 APPLIC; Start 09/13/18 at 21:00; Stop 09/18/18 at 20:59 Doxycycline Hyclate 100 mg/ Sodium Chloride 250 ml @ 250 mls/hr Q12 IVPB Last administered on 09/15/18at 08:25; Admin Dose 250 MLS/HR; Start 09/13/18 at 21:00; Stop 09/18/18 at 20:59 Amlodipine Besylate (Norvasc) 5 mg BID GTB ; Start 09/15/18 at 21:00 KASSY CURTIS MD Sep 15, 2018 15:50
--- NOTE | 2018-09-15 16:12 | CONS ---
Assessment/Plan Assessment/Plan Hospital Course (Demo Recall) No acute changes patient is laying comfortably in bed afebrile Antimicrobials: Doxycycline oral vancomycin, topical Bactroban Indwelling: PEG Microbiology: Blood culture on admission grew coag negative staph species repeat blood cultures negative MRSA positive Physical examination: This is a chronically ill-appearing elderly woman is in no distress. Head atraumatic normocephalic neck is supple chest rise symmetrical breath sounds diminished bases. Heart: S1-S2. Abdomen soft bowel sounds present. Extremities no cyanosis, trace dependent edema Assessment: 1. Status post sepsis 2. C. difficile colitis 3. Coag negative staph bacteremia, no vegetations per 2D echo 4. Hypertension 5. Diabetes 6. History of ovarian cancer 7. Right chest Port-A-Cath Plan: Patient remains stable, continue present care and current antibiotics, anticipate discharge on oral vancomycin to complete 2 weeks Consultation Date/Type/Reason Admit Date/Time Sep 10, 2018 at 13:43 Initial Consult Date Type of Consult No acute changes patient is laying comfortably in bed afebrile Antimicrobials: Doxycycline oral vancomycin, topical Bactroban Indwelling: PEG Microbiology: Blood culture on admission grew coag negative staph species repeat blood cultures negative MRSA positive Physical examination: This is a chronically ill-appearing elderly woman is in no distress. Head atraumatic normocephalic neck is supple chest rise symmetrical breath sounds diminished bases. Heart: S1-S2. Abdomen soft bowel sounds present. Extremities no cyanosis, trace dependent edema Assessment: 1. Status post sepsis 2. C. difficile colitis 3. Coag negative staph bacteremia, no vegetations per 2D echo 4. Hypertension 5. Diabetes 6. History of ovarian cancer 7. Right chest Port-A-Cath Plan: Patient remains stable, continue present care and current antibiotics, anticipate discharge on oral vancomycin to complete 2 weeks Requesting Provider: REGAN SANCHEZ Date/Time of Note DATE: 09/15/18 TIME: 16:11 Exam/Review of Systems Exam Vitals Vital Signs Date Temp Pulse Resp B/P (MAP) Pulse Ox O2 O2 Flow FiO2 Time Delivery Rate 09/15/18 97.8 69 18 163/72 96 14:08 (102) 09/15/18 Room Air 07:52 Intake and Output 09/14/18 09/14/18 09/15/18 1515:00 23:00 07:00 IntakeIntake Total 250 ml 2090 ml 800 ml OutputOutput Total 1200 ml 300 ml BalanceBalance -950 ml 1790 ml 800 ml Results Result Diagram: 09/13/1852509/13/18525 Medications Medication Current Medications Dextrose (D50w Syringe) ONCE PRN IV DECREASED GLUCOSE Last administered on 09/10/18 13:42; Admin Dose 25 ML; Start 09/10/18 at 13:30 IV Flush (NS 3 ml) 3 ml PER PROTOCOL IV ; Start 09/10/18 at 15:00 Ondansetron HCl (Zofran Inj) 4 mg Q6H PRN IV NAUSEA/VOMITING; Start 09/10/18 at 15:00 Morphine Sulfate (morphine) 2 mg Q4H PRN IV .SEVERE PAIN 7-10; Start 09/10/18 at 15:00 Clopidogrel Bisulfate (plaVIX) 75 mg DAILY GTB Last administered on 09/15/18 08:24; Admin Dose 75 MG; Start 09/11/18 at 09:00 Multivitamins Therapeutic (Theragran) 1 tab DAILY GTB Last administered on 09/15/18 08:24; Admin Dose 1 TAB; Start 09/11/18 at 09:00 Aspirin (Aspirin) 81 mg DAILY GTB Last administered on 09/15/18 08:24; Admin Dose 81 MG; Start 09/11/18 at 09:00 Heparin Sodium (Porcine) (Heparin (5000 Units/1ml)) 5,000 unit BID SC Last administered on 09/15/18 08:26; Admin Dose 5,000 UNIT; Start 09/11/18 at 21:00 Bacitracin (Bacitracin Oint (Ud)) 1 applic BID TOP Last administered on 09/13/18 12:38; Admin Dose 1 APPLIC; Start 09/12/18 at 12:30; Stop 09/21/18 at 21:01 Vancomycin HCl (Vancomycin Oral Syringe) 250 mg Q6 GTB Last administered on 09/15/18 14:47; Admin Dose 250 MG; Start 09/12/18 at 13:00 Mupirocin (Bactroban) 1 applic BID TOP Last administered on 09/15/18 08:38; Admin Dose 1 APPLIC; Start 09/13/18 at 21:00; Stop 09/18/18 at 20:59 Doxycycline Hyclate 100 mg/ Sodium Chloride 250 ml @ 250 mls/hr Q12 IVPB Last administered on 09/15/18at 08:25; Admin Dose 250 MLS/HR; Start 09/13/18 at 21:00; Stop 09/18/18 at 20:59 Amlodipine Besylate (Norvasc) 5 mg BID GTB ; Start 09/15/18 at 21:00 HAYLIE JENSEN NP Sep 15, 2018 16:12
[2018-09-15 20:15] VITALS: BP 177/81; PULSE 73; RESP 18
[2018-09-16] MEDS: VANCOMYCIN HCL 250 MG/5ML POSYG GTB SCH ×4 (00:22→17:37)
[2018-09-16 01:35] VITALS: BP 170/77; PULSE 74; RESP 18
[2018-09-16 07:47] VITALS: BP 138/62; PULSE 68; RESP 18
[2018-09-16] MEDS: BALSAM PERU/CASTOR OIL 60 GM TUBE TOP SCH ×2 (09:07→22:24)
[2018-09-16] MEDS: MUPIROCIN 2% 22 GM OINT TOP SCH ×2 (09:07→22:24)
[2018-09-16] MEDS: DOXYCYCLINE 100 MG in SOD CHLORIDE 0.9% 250 ML IVPB SCH (09:07)
[2018-09-16] MEDS: BACITRACIN 0.9 GM OINT TOP SCH ×2 (09:08→22:24)
[2018-09-16] MEDS: CLOPIDOGREL 75 MG TAB GTB SCH (09:09)
[2018-09-16] MEDS: AMLODIPINE 5 MG TAB GTB SCH ×2 (09:09→22:24)
[2018-09-16] MEDS: MULTIVITAMINS THERAPEUTIC TAB GTB SCH (09:09)
[2018-09-16] MEDS: ASPIRIN 81 MG TAB GTB SCH (09:09)
[2018-09-16] MEDS: HEPARIN 5,000 UNIT/1 ML VIAL SC SCH ×2 (09:16→22:33)
[2018-09-16 14:00] VITALS: BP 137/63; PULSE 62; RESP 20
--- NOTE | 2018-09-16 14:19 | CONS ---
Assessment/Plan Assessment/Plan Hospital Course (Demo Recall) No acute changes patient is laying comfortably in bed afebrile Antimicrobials: Doxycycline, oral vancomycin, topical Bactroban Indwelling: PEG Microbiology: Blood culture on admission grew coag negative staph species repeat blood cultures negative MRSA positive Physical examination: This is a chronically ill-appearing elderly woman is in no distress. Head atraumatic normocephalic neck is supple chest rise symmetrical breath sounds diminished bases. Heart: S1-S2. Abdomen soft bowel sounds present. Extremities no cyanosis, trace dependent edema Assessment: 1. Status post sepsis 2. C. difficile colitis 3. Coag negative staph bacteremia, no vegetations per 2D echo 4. Hypertension 5. Diabetes 6. History of ovarian cancer 7. Right chest Port-A-Cath Plan: Patient remains stable, continue PO Vanco, dc Doxycycline Consultation Date/Type/Reason Admit Date/Time Sep 10, 2018 at 13:43 Initial Consult Date Type of Consult id Requesting Provider: REGAN SANCHEZ Date/Time of Note DATE: 09/16/18 TIME: 14:18 Exam/Review of Systems Exam Vitals Vital Signs Date Temp Pulse Resp B/P (MAP) Pulse Ox O2 O2 Flow FiO2 Time Delivery Rate 09/16/18 98.1 68 18 138/62 99 07:47 (87) 09/15/18 Room Air 07:52 Intake and Output 09/15/18 09/15/18 09/16/18 1515:00 23:00 07:00 IntakeIntake Total 500 ml 1380 ml BalanceBalance 500 ml 1380 ml Results Result Diagram: 09/13/18 0526 09/16/18 0502 Results 24hrs Laboratory Tests Test 09/16/18 05:02 Sodium Level 142 Potassium Level 4.1 Chloride Level 113 H Carbon Dioxide Level 23 Anion Gap 6 Blood Urea Nitrogen 41 H Creatinine 1.18 H Est Glomerular Filtrat Rate mL/min Glucose Level 132 Calcium Level 8.0 L Medications Medication Current Medications Dextrose (D50w Syringe) ONCE PRN IV DECREASED GLUCOSE Last administered on 09/10/18at 13:42; Admin Dose 25 ML; Start 09/10/18 at 13:30 IV Flush (NS 3 ml) 3 ml PER PROTOCOL IV ; Start 09/10/18 at 15:00 Ondansetron HCl (Zofran Inj) 4 mg Q6H PRN IV NAUSEA/VOMITING; Start 09/10/18 at 15:00 Morphine Sulfate (morphine) 2 mg Q4H PRN IV .SEVERE PAIN 7-10; Start 09/10/18 at 15:00 Clopidogrel Bisulfate (plaVIX) 75 mg DAILY GTB Last administered on 09/16/18 09:09; Admin Dose 75 MG; Start 09/11/18 at 09:00 Multivitamins Therapeutic (Theragran) 1 tab DAILY GTB Last administered on 09/16/18 09:09; Admin Dose 1 TAB; Start 09/11/18 at 09:00 Aspirin (Aspirin) 81 mg DAILY GTB Last administered on 09/16/18 09:09; Admin Dose 81 MG; Start 09/11/18 at 09:00 Heparin Sodium (Porcine) (Heparin (5000 Units/1ml)) 5,000 unit BID SC Last administered on 09/16/18 09:16; Admin Dose 5,000 UNIT; Start 09/11/18 at 21:00 Bacitracin (Bacitracin Oint (Ud)) 1 applic BID TOP Last administered on 09/16/18 09:08; Admin Dose 1 APPLIC; Start 09/12/18 at 12:30; Stop 09/21/18 at 21:01 Vancomycin HCl (Vancomycin Oral Syringe) 250 mg Q6 GTB Last administered on 09/16/18 12:32; Admin Dose 250 MG; Start 09/12/18 at 13:00 Mupirocin (Bactroban) 1 applic BID TOP Last administered on 09/16/18 09:07; Admin Dose 1 APPLIC; Start 09/13/18 at 21:00; Stop 09/18/18 at 20:59 Doxycycline Hyclate 100 mg/ Sodium Chloride 250 ml @ 250 mls/hr Q12 IVPB Last administered on 09/16/18 09:07; Admin Dose 250 MLS/HR; Start 09/13/18 at 21:00; Stop 09/18/18 at 20:59 Amlodipine Besylate (Norvasc) 5 mg BID GTB Last administered on 09/16/18 09:09; Admin Dose 5 MG; Start 09/15/18 at 21:00 HAYLIE JENSEN NP Sep 16, 2018 14:19
--- NOTE | 2018-09-16 14:30 | PN ---
Date/Time of Note Date/Time of Note DATE: 09/16/18 TIME: 14:29 Assessment/Plan VTE Prophylaxis Risk score (from Nsg)>0 risk: 11 SCD applied (from Nsg): Yes Pharmacological prophylaxis: heparin Lines/Catheters IV Catheter Type (from Nrsg): Portacath Urinary Cath still in place: No Assessment/Plan Hospital Course 87 yo female with dementia presents with sepsis and acute encephelopathy Subacute CVA - CT head once again shows acute/recent left temporal occipital and right parietal occipital infarctions - Aspirin and plavix per neurology Sepsis - CoNS is likely a contaminent per ID C Diff diarrhea: - continue PO Vanco course Gabby UTI: - complete diflucan course Acute kidney injury on CKD likely secondary to sepsis and hemodynamics-improving - Improved, trend creatinine History of ovarian cancer Unclear if patient is receiving chemotherapy 5. Dementia Patient resides in a halfway and receives G-tube feeds Palliative care consultation obtained 6. Hyperkalemia secondary to renal failure Treated in ER 7. Normocytic anemia likely secondary to chronic disease and renal failure Monitor 8. Hypertension Continue home meds Prophylaxis: Heparin DC planning: Patient with poor prognosis, palliative care consultation obtained. Stable for DC to facility Result Diagram: 09/13/18 0526 09/16/18 0502 Results 24hrs Laboratory Tests Test 09/16/18 05:02 Sodium Level 142 Potassium Level 4.1 Chloride Level 113 H Carbon Dioxide Level 23 Anion Gap 6 Blood Urea Nitrogen 41 H Creatinine 1.18 H Est Glomerular Filtrat Rate mL/min Glucose Level 132 Calcium Level 8.0 L Subjective 24 Hr Interval Summary Free Text/Dictation No change to status Continues PO vanco for C Diff Exam/Review of Systems Exam Vitals Vital Signs Date Temp Pulse Resp B/P (MAP) Pulse Ox O2 O2 Flow FiO2 Time Delivery Rate 09/16/18 98.1 68 18 138/62 99 07:47 (87) 09/15/18 Room Air 07:52 Intake and Output 09/15/18 09/15/18 09/16/18 1515:00 23:00 07:00 IntakeIntake Total 500 ml 1380 ml BalanceBalance 500 ml 1380 ml Results Results 24hrs Laboratory Tests Test 09/16/18 05:02 Sodium Level 142 Potassium Level 4.1 Chloride Level 113 H Carbon Dioxide Level 23 Anion Gap 6 Blood Urea Nitrogen 41 H Creatinine 1.18 H Est Glomerular Filtrat Rate mL/min Glucose Level 132 Calcium Level 8.0 L Medications Medication Current Medications Dextrose (D50w Syringe) ONCE PRN IV DECREASED GLUCOSE Last administered on 09/10/18 13:42; Admin Dose 25 ML; Start 09/10/18 at 13:30 IV Flush (NS 3 ml) 3 ml PER PROTOCOL IV ; Start 09/10/18 at 15:00 Ondansetron HCl (Zofran Inj) 4 mg Q6H PRN IV NAUSEA/VOMITING; Start 09/10/18 at 15:00 Morphine Sulfate (morphine) 2 mg Q4H PRN IV .SEVERE PAIN 7-10; Start 09/10/18 at 15:00 Clopidogrel Bisulfate (plaVIX) 75 mg DAILY GTB Last administered on 09/16/18 09:09; Admin Dose 75 MG; Start 09/11/18 at 09:00 Multivitamins Therapeutic (Theragran) 1 tab DAILY GTB Last administered on 09:09; Admin Dose 1 TAB; Start 09/11/18 at 09:00 Aspirin (Aspirin) 81 mg DAILY GTB Last administered on 09/16/18 09:09; Admin Dose 81 MG; Start 09/11/18 at 09:00 Heparin Sodium (Porcine) (Heparin (5000 Units/1ml)) 5,000 unit BID SC Last administered on 09/16/18 09:16; Admin Dose 5,000 UNIT; Start 09/11/18 at 21:00 Bacitracin (Bacitracin Oint (Ud)) 1 applic BID TOP Last administered on 09:08; Admin Dose 1 APPLIC; Start 09/12/18 at 12:30; Stop 09/21/18 at 21:01 Vancomycin HCl (Vancomycin Oral Syringe) 250 mg Q6 GTB Last administered on 09/16/18 12:32; Admin Dose 250 MG; Start 09/12/18 at 13:00 Mupirocin (Bactroban) 1 applic BID TOP Last administered on 09/16/18 09:07; Ad min Dose 1 APPLIC; Start 09/13/18 at 21:00; Stop 09/18/18 at 20:59 Amlodipine Besylate (Norvasc) 5 mg BID GTB Last administered on 09/16/18 09:09; Admin Dose 5 MG; Start 09/15/18 at 21:00 KASSY CURTIS MD Sep 16, 2018 14:30
[2018-09-16 20:36] VITALS: BP 171/76; PULSE 71; RESP 18
[2018-09-17] MEDS: VANCOMYCIN HCL 250 MG/5ML POSYG GTB SCH ×4 (00:36→17:54)
[2018-09-17 02:36] VITALS: BP 148/67; PULSE 68; RESP 18
[2018-09-17 08:10] VITALS: BP 168/79; PULSE 70; RESP 19
[2018-09-17] MEDS: CLOPIDOGREL 75 MG TAB GTB SCH (09:23)
[2018-09-17] MEDS: MULTIVITAMINS THERAPEUTIC TAB GTB SCH (09:23)
[2018-09-17] MEDS: ASPIRIN 81 MG TAB GTB SCH (09:23)
[2018-09-17] MEDS: AMLODIPINE 5 MG TAB GTB SCH ×2 (09:23→20:58)
[2018-09-17] MEDS: BACITRACIN 0.9 GM OINT TOP SCH ×2 (09:24→20:57)
[2018-09-17] MEDS: BALSAM PERU/CASTOR OIL 60 GM TUBE TOP SCH ×2 (09:31→21:30)
[2018-09-17] MEDS: HEPARIN 5,000 UNIT/1 ML VIAL SC SCH ×2 (09:31→21:28)
[2018-09-17] MEDS: MUPIROCIN 2% 22 GM OINT TOP SCH ×2 (09:31→20:58)
--- NOTE | 2018-09-17 12:31 | CONS ---
Assessment/Plan Assessment/Plan Hospital Course (Demo Recall) No acute changes, afebrile, looks comfortable Antimicrobials: Oral Vanco Indwelling: PEG Microbiology: Blood culture on admission grew coag negative staph species repeat blood cultures negative MRSA positive Physical examination: This is a chronically ill-appearing elderly woman is in no distress. Head atraumatic normocephalic neck is supple chest rise symmetrical breath sounds diminished bases. Heart: S1-S2. Abdomen soft bowel sounds present. Extremities no cyanosis, trace dependent edema Assessment: 1. Status post sepsis 2. C. difficile colitis 3. Coag negative staph bacteremia, no vegetations per 2D echo 4. Hypertension 5. Diabetes 6. History of ovarian cancer 7. Right chest Port-A-Cath Plan: Patient remains stable, anticipate discharge on oral vancomycin for 10 more days Consultation Date/Type/Reason Admit Date/Time Sep 10, 2018 at 13:43 Initial Consult Date Type of Consult id Requesting Provider: REGAN SANCHEZ Date/Time of Note DATE: 09/17/18 TIME: 12:30 Exam/Review of Systems Exam Vitals Vital Signs Date Temp Pulse Resp B/P (MAP) Pulse Ox O2 O2 Flow FiO2 Time Delivery Rate 09/17/18 97.8 70 19 168/79 97 Room Air 08:10 (108) Intake and Output 09/16/18 09/16/18 09/17/18 1414:59 22:59 06:59 IntakeIntake Total 250 ml 1130 ml BalanceBalance 250 ml 1130 ml Results Result Diagram: 09/13/18 0526 09/16/18 0502 Medications Medication Current Medications Dextrose (D50w Syringe) ONCE PRN IV DECREASED GLUCOSE Last administered on 09/10/18at 13:42; Admin Dose 25 ML; Start 09/10/18 at 13:30 IV Flush (NS 3 ml) 3 ml PER PROTOCOL IV ; Start 09/10/18 at 15:00 Ondansetron HCl (Zofran Inj) 4 mg Q6H PRN IV NAUSEA/VOMITING; Start 09/10/18 at 15:00 Morphine Sulfate (morphine) 2 mg Q4H PRN IV .SEVERE PAIN 7-10; Start 09/10/18 at 15:00 Clopidogrel Bisulfate (plaVIX) 75 mg DAILY GTB Last administered on 09/17/18at 09:23; Admin Dose 75 MG; Start 09/11/18 at 09:00 Multivitamins Therapeutic (Theragran) 1 tab DAILY GTB Last administered on 09/17/18 09:23; Admin Dose 1 TAB; Start 09/11/18 at 09:00 Aspirin (Aspirin) 81 mg DAILY GTB Last administered on 09/17/18 09:23; Admin Dose 81 MG; Start 09/11/18 at 09:00 Heparin Sodium (Porcine) (Heparin (5000 Units/1ml)) 5,000 unit BID SC Last administered on 09/17/18 09:31; Admin Dose 5,000 UNIT; Start 09/11/18 at 21:00 Bacitracin (Bacitracin Oint (Ud)) 1 applic BID TOP Last administered on 09/17/18 09:24; Admin Dose 1 APPLIC; Start 09/12/18 at 12:30; Stop 09/21/18 at 21:01 Vancomycin HCl (Vancomycin Oral Syringe) 250 mg Q6 GTB Last administered on 09/17/18 12:08; Admin Dose 250 MG; Start 09/12/18 at 13:00 Mupirocin (Bactroban) 1 applic BID TOP Last administered on 09/17/18 09:31; Admin Dose 1 APPLIC; Start 09/13/18 at 21:00; Stop 09/18/18 at 20:59 Amlodipine Besylate (Norvasc) 5 mg BID GTB Last administered on 09/17/18 09:23; Admin Dose 5 MG; Start 09/15/18 at 21:00 HAYLIE JENSEN NP Sep 17, 2018 12:31
[2018-09-17 13:46] VITALS: BP 144/64; PULSE 63; RESP 18
--- NOTE | 2018-09-17 16:55 | PN ---
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 Dementia Patient resides in a residential and receives G-tube feeds Palliative care consultation obtained 6. Hyperkalemia secondary to renal failure Treated in ER 7. Normocytic anemia likely secondary to chronic disease and renal failure Monitor 8. Hypertension Continue home meds Prophylaxis: Heparin DC planning: Patient with poor prognosis, palliative care consultation obtained. Stable for DC to facility Result Diagram: 09/13/18 0526 09/16/18 0502 Subjective 24 Hr Interval Summary Free Text/Dictation No change to clinical status Continue PO vanco Exam/Review of Systems Exam Vitals Vital Signs Date Temp Pulse Resp B/P (MAP) Pulse Ox O2 O2 Flow FiO2 Time Delivery Rate 09/17/18 97.9 63 18 144/64 97 13:46 (90) 09/17/18 Room Air 08:10 Intake and Output 09/16/18 09/16/18 09/17/18 1414:59 22:59 06:59 IntakeIntake Total 250 ml 1130 ml BalanceBalance 250 ml 1130 ml Medications Medication Current Medications Dextrose (D50w Syringe) ONCE PRN IV DECREASED GLUCOSE Last administered on 09/10/18at 13:42; Admin Dose 25 ML; Start 09/10/18 at 13:30 IV Flush (NS 3 ml) 3 ml PER PROTOCOL IV ; Start 09/10/18 at 15:00 Ondansetron HCl (Zofran Inj) 4 mg Q6H PRN IV NAUSEA/VOMITING; Start 09/10/18 at 15:00 Morphine Sulfate (morphine) 2 mg Q4H PRN IV .SEVERE PAIN 7-10; Start 09/10/18 at 15:00 Clopidogrel Bisulfate (plaVIX) 75 mg DAILY GTB Last administered on 09/17/18 09:23; Admin Dose 75 MG; Start 09/11/18 at 09:00 Multivitamins Therapeutic (Theragran) 1 tab DAILY GTB Last administered on 09/17/18 09:23; Admin Dose 1 TAB; Start 09/11/18 at 09:00 Aspirin (Aspirin) 81 mg DAILY GTB Last administered on 09/17/18 09:23; Admin Dose 81 MG; Start 09/11/18 at 09:00 Heparin Sodium (Porcine) (Heparin (5000 Units/1ml)) 5,000 unit BID SC Last administered on 09/17/18 09:31; Admin Dose 5,000 UNIT; Start 09/11/18 at 21:00 Bacitracin (Bacitracin Oint (Ud)) 1 applic BID TOP Last administered on 09/17/18 09:24; Admin Dose 1 APPLIC; Start 09/12/18 at 12:30; Stop 09/21/18 at 21:01 Vancomycin HCl (Vancomycin Oral Syringe) 250 mg Q6 GTB Last administered on 09/17/18 12:08; Admin Dose 250 MG; Start 09/12/18 at 13:00 Mupirocin (Bactroban) 1 applic BID TOP Last administered on 09/17/18 09:31; Admin Dose 1 APPLIC; Start 09/13/18 at 21:00; Stop 09/18/18 at 20:59 Amlodipine Besylate (Norvasc) 5 mg BID GTB Last administered on 09/17/18 09:23; Admin Dose 5 MG; Start 09/15/18 at 21:00 KASSY CURTIS MD Sep 17, 2018 16:55
--- NOTE | 2018-09-17 17:43 | DS ---
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 Dementia Patient resides in a prison and receives G-tube feeds Palliative care consultation obtained 6. Hyperkalemia secondary to renal failure Treated in ER 7. Normocytic anemia likely secondary to chronic disease and renal failure Monitor 8. Hypertension Continue home meds Prophylaxis: Heparin DC planning: Patient with poor prognosis, palliative care consultation obtained. Stable for DC to facility Home Meds Reported Medications Polyethylene Glycol* (Polyethylene Glycol*) 17 Gm Powd.pack, 17 GM GTB BID, #60 PACKET MIX WITH 8oz OF WATER HOLD FOR LOOSE STOOL 09/10/18 Ferrous Sulfate (Ferrous Sulfate) 220 Mg/5 Ml Solution, 330 MG GTB BID 09/10/18 Losartan Potassium* (Losartan Potassium*) 50 Mg Tablet, 50 MG GTB DAILY, TAB HOLD IF SBP <110 09/10/18 Multivitamin* (Daily Value*) 1 Each Tablet, 1 TAB GTB DAILY, TAB 09/10/18 Clopidogrel Bisulfate (Clopidogrel) 75 Mg Tablet, 75 MG GTB DAILY, #30 TAB 09/10/18 Amino Acids/Protein Hydrolys (Pro-Stat Awc Liquid) 30 Ml Liquid, 30 ML GTB BID MIX WITH 30 MLS OF WATER 09/10/18 Aspirin (Low Dose Aspirin) 81 Mg Tablet.dr, 81 MG GTB DAILY, #30 TAB 09/10/18 Amlodipine Besylate* (Norvasc*) 5 Mg Tablet, 5 MG GTB DAILY, TAB HOLD FOR SBP <110 09/10/18 Primary Care Provider MD EVER Noel,KASSY Jacques MD Sep 17, 2018 17:43
[2018-09-17 20:00] VITALS: BP 165/77; PULSE 75; RESP 18
[2018-09-17] MEDS ORDERED: HEPARIN (100 UNITS/ML) 5 ML SYG CATHETER ONE (20:30)
[2018-09-17 22:01] VITALS: BP 177/80; PULSE 77
[2018-09-17] MEDS ORDERED: hydrALAzine 20 MG INJ IV ONE (22:30)
[2018-09-17 23:15] VITALS: BP 140/67; PULSE 82
[2018-09-18 00:03] VITALS: BP 167/67; PULSE 83
[2018-09-18] MEDS: VANCOMYCIN HCL 250 MG/5ML POSYG GTB SCH ×3 (00:51→11:44)
[2018-09-18] MEDS: LISINOPRIL 5 MG TAB GTB SCH ×2 (00:52→08:50)
[2018-09-18 02:10] VITALS: BP 149/70; PULSE 79; RESP 18
[2018-09-18 08:14] VITALS: BP 145/68; PULSE 78; RESP 18
[2018-09-18] MEDS: HEPARIN 5,000 UNIT/1 ML VIAL SC SCH (08:49)
[2018-09-18] MEDS: ASPIRIN 81 MG TAB GTB SCH (08:50)
[2018-09-18] MEDS: AMLODIPINE 5 MG TAB GTB SCH (08:50)
[2018-09-18] MEDS: MULTIVITAMINS THERAPEUTIC TAB GTB SCH (08:50)
[2018-09-18] MEDS: CLOPIDOGREL 75 MG TAB GTB SCH (08:50)
[2018-09-18] MEDS: BACITRACIN 0.9 GM OINT TOP SCH (08:50)
[2018-09-18] MEDS: MUPIROCIN 2% 22 GM OINT TOP SCH (08:51)
[2018-09-18] MEDS: BALSAM PERU/CASTOR OIL 60 GM TUBE TOP SCH (08:51)
--- NOTE | 2018-09-18 11:45 | CONS ---
Assessment/Plan Assessment/Plan Hospital Course (Demo Recall) No acute changes, looks comfortable Antimicrobials: Oral Vanco Indwelling: PEG Microbiology: Blood culture on admission grew coag negative staph species repeat blood cultures negative MRSA positive Physical examination: This is a chronically ill-appearing elderly woman is in no distress. Head atraumatic normocephalic neck is supple chest rise symmetrical breath sounds diminished bases. Heart: S1-S2. Abdomen soft bowel sounds present. Extremities no cyanosis, trace dependent edema Assessment: 1. Status post sepsis 2. C. difficile colitis 3. Coag negative staph bacteremia, no vegetations per 2D echo 4. Hypertension 5. Diabetes 6. History of ovarian cancer 7. Right chest Port-A-Cath Plan: Patient remains unchanged, continue on oral vancomycin for 10 more days, pending SNF Consultation Date/Type/Reason Admit Date/Time Sep 10, 2018 at 13:43 Initial Consult Date Type of Consult id Requesting Provider: REGAN SANCHEZ Date/Time of Note DATE: 09/18/18 TIME: 11:45 Exam/Review of Systems Exam Vitals Vital Signs Date Temp Pulse Resp B/P (MAP) Pulse Ox O2 O2 Flow FiO2 Time Delivery Rate 09/18/18 98.0 78 18 145/68 97 08:14 (93) 09/17/18 Room Air 08:10 Intake and Output 09/17/18 09/17/18 09/18/18 1515:00 23:00 07:00 IntakeIntake Total 350 ml 655 ml BalanceBalance 350 ml 655 ml Results Result Diagram: 09/16/18 0502 Medications Medication Current Medications Dextrose (D50w Syringe) ONCE PRN IV DECREASED GLUCOSE Last administered on 09/10/18at 13:42; Admin Dose 25 ML; Start 09/10/18 at 13:30 IV Flush (NS 3 ml) 3 ml PER PROTOCOL IV ; Start 09/10/18 at 15:00 Ondansetron HCl (Zofran Inj) 4 mg Q6H PRN IV NAUSEA/VOMITING; Start 09/10/18 at 15:00 Morphine Sulfate (morphine) 2 mg Q4H PRN IV .SEVERE PAIN 7-10; Start 09/10/18 at 15:00 Clopidogrel Bisulfate (plaVIX) 75 mg DAILY GTB Last administered on 09/18/18at 08:50; Admin Dose 75 MG; Start 09/11/18 at 09:00 Multivitamins Therapeutic (Theragran) 1 tab DAILY GTB Last administered on 09/18/18 08:50; Admin Dose 1 TAB; Start 09/11/18 at 09:00 Aspirin (Aspirin) 81 mg DAILY GTB Last administered on 09/18/18 08:50; Admin Dose 81 MG; Start 09/11/18 at 09:00 Heparin Sodium (Porcine) (Heparin (5000 Units/1ml)) 5,000 unit BID SC Last administered on 09/18/18 08:49; Admin Dose 5,000 UNIT; Start 09/11/18 at 21:00 Bacitracin (Bacitracin Oint (Ud)) 1 applic BID TOP Last administered on 09/18/18 08:50; Admin Dose 1 APPLIC; Start 09/12/18 at 12:30; Stop 09/21/18 at 21:01 Vancomycin HCl (Vancomycin Oral Syringe) 250 mg Q6 GTB Last administered on 09/18/18 11:44; Admin Dose 250 MG; Start 09/12/18 at 13:00 Mupirocin (Bactroban) 1 applic BID TOP Last administered on 09/17/18 20:58; Admin Dose 1 APPLIC; Start 09/13/18 at 21:00; Stop 09/18/18 at 20:59 Amlodipine Besylate (Norvasc) 5 mg BID GTB Last administered on 09/18/18 08:50; Admin Dose 5 MG; Start 09/15/18 at 21:00 Lisinopril (Zestril) 5 mg DAILY GTB Last administered on 09/18/18 08:50; Admin Dose 5 MG; Start 09/18/18 at 00:30 HAYLIE JENSEN NP Sep 18, 2018 11:45
[2018-09-18 13:33] VITALS: BP 140/65; PULSE 70; RESP 20
== END 2018-09-18 14:25 | DRG 64 ==
LOC: E/R 12:14 → ICU 13:43 → EDBEDREQ 15:08 → EDBEDREQSVC 15:08 → 6WM 09-12 22:03 → 5EC 09-13 13:20 → 2NE 09-15 10:00
PROVIDERS: ADMIT Internal Medicine; ATTEND Internal Medicine
PROC: 4A033R1 Measurement of Arterial Saturation, Peripheral, Percutaneous Approach (ICD-10-PCS; principal; 2018-09-11)
PROC: 30233N1 Transfusion of Nonautologous Red Blood Cells into Peripheral Vein, Percutaneous Approach (ICD-10-PCS; 2018-09-11)
DX: I63.9 Cerebral infarction, unspecified (principal); A41.9 Sepsis, unspecified organism; G92 Toxic encephalopathy; R65.20 Severe sepsis without septic shock; N17.9 Acute kidney failure, unspecified; I13.0 Hypertensive heart and chronic kidney disease with heart failure and stage 1 through stage 4 chronic kidney disease, or unspecified chronic kidney disease; A04.72 Enterocolitis due to Clostridium difficile, not specified as recurrent; I50.32 Chronic diastolic (congestive) heart failure; B37.49 Other urogenital candidiasis; E87.5 Hyperkalemia; N18.9 Chronic kidney disease, unspecified; I25.10 Atherosclerotic heart disease of native coronary artery without angina pectoris; Z93.1 Gastrostomy status; F03.90 Unspecified dementia, unspecified severity, without behavioral disturbance, psychotic disturbance, mood disturbance, and anxiety; E11.22 Type 2 diabetes mellitus with diabetic chronic kidney disease; E78.5 Hyperlipidemia, unspecified; R13.10 Dysphagia, unspecified; K21.9 Gastro-esophageal reflux disease without esophagitis; D63.1 Anemia in chronic kidney disease; Z79.82 Long term (current) use of aspirin; Z85.43 Personal history of malignant neoplasm of ovary
CPT/HCPCS: 36415; 36430; 36600; 70450; 70486; 71045; 76775; 80048; 80053; 80202; 81001; 82803; 82962; 83735; 84100; 84484; 85018; 85025; 86850; 86900; 86901; 86920; 87075; 87081; 87086; 93005; 93306; 93880; 94664; 96374; 96375; J0360; J0696; J1642; J1644; J1815; J3370; J7030; J7050; P9016